=== PATIENT | male | born 1960 | race Caucasian/White ===

== ENCOUNTER 2024-10-03 06:43 | Outpatient (CLI) | payer MEDICARE, SELFPAY ==
--- NOTE | ~2024-10-03 | CT_ITS ---
Pre and postcontrast Head CT History: Epilepsy Technique: Axial imaging of the brain was performed prior to and following intravenous administratio n of 100 cc of Omnipaque 350 contrast material. Dose reduction technique was used on this scan by ela trotter automated exposure control and iterative reconstruction technique. The dose-length product (DL P) was 1210.67 mGy-cm. Findings: There is no evidence of intracranial hemorrhage, mass lesion, or acute infarct. Large area of encephalomalacia in the right frontal lobe is present, with apparent communication with the later al ventricle. The ventricles and subarachnoid spaces are mildly dilated otherwise. The calvarium roberto ears normal. Right maxillary sinus disease present. The remaining visualized paranasal sinuses and ma stoid air cells are clear. No abnormal postcontrast enhancement seen. Impression: Large area of encephalomalacia in the right frontal lobe with communication with the lateral ventricl e. No distinct evidence of postoperative change otherwise in the skull. 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 Correlate with any relevant clinical or procedural/surgical history. Reviewed, dictated and finalized at location M. Impression: Large area of encephalomalacia in the right frontal lobe with communication wit h the lateral ventricle. No distinct evidence of postoperative change otherwise in the skull. 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 Correlate with any re levant clinical or procedural/surgical history.
--- OUTSIDE RECORDS SUMMARY | 2024-10-03 06:46 | XMS_ITS | Data Portability ---
Author Organization [place] [facility] [employer], Main Office Address [address] [place] [address] Assessment Encounter Date Assessment Date Assessment LastModified by Organization Details LastModified Time 11/19/2022 11/19/2022 Blood work continue current therapy diagnosis discussed in follow-up in 4 months [email or web address] Not available 11/29/2022 18:22:13 04/02/2023 04/02/2023 Will continue current therapy there has been no seizure activity most recent blood work has been discussed smoking cessation discussed in detail and he does not want anything to do with the right now. shari of the ill effects of tobacco which were included but not limited to increased tumors of the aerodigestive tract increase incidence of heart attack stroke and cancer which could lead to sudden or chronic medical illness return to clinic 6 months [email or web address] Not available 04/12/2023 18:24:32 Plan of Treatment Reminders Order Date Submit Date Provider Last Modified By Organization Details Last Modified Time Details Appointments None recorded. Lab lipid panel, serum 023 023 [facility] (Lab), [address] [place], [address], 3 18:16:07 phenytoin , total, serum 023 023 [facility] (Lab), [address] [place], [address], 3 18:16:26 CBC w/ auto diff 023 023 [facility] (Lab), [address] [place], [address], 3 17:43:25 CMP, serum or plasma 023 023 [facility] (Lab), [address] [place], [address], 3 18:16:02 vitamin D, 25-hydrox y, total, serum 023 023 [facility] (Lab), [address] [place], [address], 3 11:06:13 Referral None recorded. Procedures None recorded. Surgeries None recorded. Imaging None recorded. Medication Orders None recorded. Patient TargetsNo targets recorded. Patient InstructionsNo instructions recorded. Reason for Referral None Reported. Results Created Date Observation Date Name Description Value Unit Range Abnormal Flag Note LastModifiedBy Organization Detail LastModifiedTime 01/09/20 22 01/08/2022 VITAM IN D 25-HY DROXY [id number] 84.1 NG/mL 30-100 Vitam in D Statu s: Defic ient: <20 ng/mL Insuf ficie nt: 20-29 ng/mL Suffi cient : 30-10 0 ng/mL Not Available [facility] (Lab) [address] [place], [address], 01/08/2022 14:39:20 01/09/20 22 01/08/2022 LIPID PANEL cholesterol 150 mg/dL 140-19 9 NIH MESFIN NSUS RECOM MENDA TION FOR ROBERT STERO L: ADULT CHILD LOW RISK: <200 <170 BORDE RLINE : <200- 239 ----- HIGH RISK: >240 >200 Not Available [facility] (Lab) [address] [place], [address], 01/08/2022 14:30:41 01/09/20 22 01/08/2022 LIPID PANEL triglyceride s 79 mg/dL 0-150 NIH MESFIN NSUS REPOR T RECOM MENDA TION FOR TRIGL YCERI ANEESH: ADULT CHILD LOW RISK: <150 ----- BODER LINE: 150-1 99 ----- HIGH RISK: >200 ----- Not Available [facility] (Lab) [address] [place], [address], 01/08/2022 14:30:41 01/09/20 22 01/08/2022 LIPID PANEL HDL cholesterol 79 mg/dL 40- Not Available [facility] (Lab) [address] [place], [address], 01/08/2022 14:30:41 01/09/20 22 01/08/2022 LIPID PANEL LDL cholesterol, calculated 55 mg/dL 0-130 NIH MESFIN NSUS REPOR T RECOM MENDA TIONS FOR LDL: ADULT CHILD LOW RISK <130 <110 (OPTI MAL LDL) <100 ----- TONIA RLINE : 130-1 59 ----- HIGH RISK: >160 >130 A TRIGL YCERI DE RESUL T >400 INVAL IDATE S THE CALCU LATIO N FOR LDL FRACT IONAT ION - THE LDL RESUL T WILL NOT BE REPOR PRAVEENA. Not Available [facility] (Lab) [address] [place], [address], 01/08/2022 14:30:41 01/09/20 22 01/08/2022 COMPR EHENS OANH METAB OLIC PANEL carbon dioxide 28 mmol/ L 22-30 Not Available [facility] (Lab) [address] [place], [address], 01/08/2022 14:30:37 01/09/20 22 01/08/2022 COMPR EHENS OANH METAB OLIC PANEL sodium 138 mmol/ L 137-14 5 Not Available [facility] (Lab) [address] [place], [address], 01/08/2022 14:30:37 01/09/20 22 01/08/2022 COMPR EHENS OANH METAB OLIC PANEL potassium 4.1 mmol/ L 3.5-5. 1 Not Available [facility] (Lab) [address] [place], [address], 01/08/2022 14:30:37 01/09/20 22 01/08/2022 COMPR EHENS OANH METAB OLIC PANEL chloride 103 mmol/ L 98-107 Not Available [facility] (Lab) [address] [place], [address], 01/08/2022 14:30:37 01/09/20 22 01/08/2022 COMPR EHENS OANH METAB OLIC PANEL anion gap 11.1 mmol/ L 14-22 low Not Available [facility] (Lab) [address] [place], [address], 01/08/2022 14:30:37 01/09/20 22 01/08/2022 COMPR EHENS AONH METAB OLIC PANEL glucose 111 mg/dL 70-99 high Not Available [facility] (Lab) [address] [place], [address], 01/08/2022 14:30:37 01/09/20 22 01/08/2022 COMPR EHENS OANH METAB OLIC PANEL BUN 13 mg/dL 8-19 Not Available [facility] (Lab) [address] [place], [address], 01/08/2022 14:30:37 01/09/20 22 01/08/2022 COMPR EHENS OANH METAB OLIC PANEL creatinine 1.05 mg/dL 0.66-1 .25 Not Available [facility] (Lab) [address] [place], [address], 01/08/2022 14:30:37 01/09/20 22 01/08/2022 COMPR EHENS OANH METAB OLIC PANEL GFR >60 Refer ence Range : [place] ge GFR Healt hy Adult : >60 mL/mi n/1.7 3 m2 Chron ic Kidne y Disea se: 15-60 mL/mi n/1.7 3 m2 Kidne y Failu re: <15/m L/min /1.73 m2 www.n iddk. nih.g ov The MDRD study equat ion has not been valid ated in child syl <18 years of age; pregn ant women ; the elder ly >85 years of age; or in some racia l or ethni c subgr oups, such as Hismichael nics. Outsi de the valid ated joe eters , estim ated GFR is less accur ate, requi ring clini frandy judgm ent on a case- by-ca se basis . Clini frandy inter preta tion for other races and ages must be made by the clini marcelino. The MDRD study equat ion has not been valid ated for the evalu ation of serum creat inine relat ed to nutri lisset l statu s or medic ation usage . For perso ns <18 years of age, a pedia tric GFR calcu lator is avail able on the [facility] websi te: https :[email or web address] ceballos.dominguez phillips.o rg/pr ofess ional s/kdo qi/gf r_cal culat or Not Available [facility] (Lab) [address] [place], [address], 01/08/2022 14:30:37 01/09/20 22 01/08/2022 COMPR EHENS OANH METAB OLIC PANEL alkaline phosphatase 42 U/L 38-126 Not Available [facility] (Lab) [address] [place], [address], 01/08/2022 14:30:37 01/09/20 22 01/08/2022 COMPR EHENS OANH METAB OLIC PANEL alanine aminotransfe rase 26 U/L 0-50 Not Available [facility] (Lab) [address] [place], [address], 01/08/2022 14:30:37 01/09/20 22 01/08/2022 COMPR EHENS OANH METAB OLIC PANEL aspartate aminotransfe rase 38 U/L 15-46 Not Available [facility] (Lab) [address] [place], [address], 01/08/2022 14:30:37 01/09/20 22 01/08/2022 COMPR EHENS OANH METAB OLIC PANEL bilirubin, total 0.70 mg/dL 0.20-1 .30 Not Available [facility] (Lab) [address] [place], [address], 01/08/2022 14:30:37 01/09/20 22 01/08/2022 COMPR EHENS OANH METAB OLIC PANEL calcium 9.6 mg/dL 8.4-10 .2 Not Available [facility] (Lab) [address] [place], [address], 01/08/2022 14:30:37 01/09/20 22 01/08/2022 COMPR EHENS OANH METAB OLIC PANEL total protein 6.6 g/dL 6.3-8. 2 Not Available [facility] (Lab) [address] [place], [address], 01/08/2022 14:30:37 01/09/20 22 01/08/2022 COMPR EHENS OANH METAB OLIC PANEL albumin 4.5 g/dL 3.0-4. 4 high Not Available [facility] (Lab) [address] [place], [address], 01/08/2022 14:30:37 01/09/20 22 01/08/2022 COMPR EHENS OANH METAB OLIC PANEL globulin 2.1 g/dL 2.6-4. 2 low Not Available [facility] (Lab) [address] [place], [address], 01/08/2022 14:30:37 01/09/20 22 01/08/2022 COMPR EHENS OANH METAB OLIC PANEL A/G ratio 2.1 ratio 1.0-2. 0 high Not Available [facility] (Lab) [address] [place], [address], 01/08/2022 14:30:37 01/09/20 22 01/08/2022 CBC W/O DIFFE RENTI AL mean red cell volume 97.1 fL 80.0-9 7.0 high Not Available [facility] (Lab) [address] [place], [address], 01/08/2022 12:51:01 01/09/20 22 01/08/2022 CBC W/O DIFFE RENTI AL white blood cells 4.2 x10'3 /uL 4.2-10 .8 Not Available [facility] (Lab) [address] [place], [address], 01/08/2022 12:51:01 01/09/20 22 01/08/2022 CBC W/O DIFFE RENTI AL red blood cells 4.14 x10'6 /uL 4.10-5 .80 Not Available [facility] (Lab) [address] [place], [address], 01/08/2022 12:51:01 01/09/20 22 01/08/2022 CBC W/O DIFFE RENTI AL hemoglobin 13.9 g/dL 13.2-1 7.0 Not Available [facility] (Lab) [address] [place], [address], 01/08/2022 12:51:01 01/09/20 22 01/08/2022 CBC W/O DIFFE RENTI AL hematocrit 40.2 % 39.3-5 0.0 Not Available [facility] (Lab) [address] [place], [address], 01/08/2022 12:51:01 01/09/20 22 01/08/2022 CBC W/O DIFFE RENTI AL mean red cell hemoglobin 33.6 pg 27.0-3 3.0 high Not Available [facility] (Lab) [address] [place], [address], 01/08/2022 12:51:01 01/09/20 22 01/08/2022 CBC W/O DIFFE RENTI AL mean RBC HGB concentratio n 34.6 g/dL 31.0-3 6.0 Not Available [facility] (Lab) [address] [place], [address], 01/08/2022 12:51:01 01/09/20 22 01/08/2022 CBC W/O DIFFE RENTI AL red cell distribution width 12.6 % 11.8-1 5.5 Not Available [facility] (Lab) [address] [place], [address], 01/08/2022 12:51:01 01/09/20 22 01/08/2022 CBC W/O DIFFE RENTI AL platelets 115 x10'3 /uL 150-40 0 low Not Available [facility] (Lab) [address] [place], [address], 01/08/2022 12:51:01 01/09/20 22 01/08/2022 CBC W/O DIFFE RENTI AL mean platelet volume 10.3 fL 9.0-12 .4 Not Available [facility] (Lab) [address] [place], [address], 01/08/2022 12:51:01 11/20/19 23 11/19/2022 CBC/C OMPLE TE BLD COUNT W/DIF F white blood cells 4.6 x10'3 /uL 4.2-10 .8 Not Available [facility] (Lab) [address] [place], [address], 11/19/2022 17:43:25 11/20/19 23 11/19/2022 CBC/C OMPLE TE BLD COUNT W/DIF F red blood cells 4.08 x10'6 /uL 4.10-5 .80 low Not Available [facility] (Lab) [address] [place], [address], 11/19/2022 17:43:25 11/20/19 23 11/19/2022 CBC/C OMPLE TE BLD COUNT W/DIF F hemoglobin 13.7 g/dL 13.2-1 7.0 Not Available [facility] (Lab) [address] [place], [address], 11/19/2022 17:43:25 11/20/19 23 11/19/2022 CBC/C OMPLE TE BLD COUNT W/DIF F hematocrit 40.9 % 39.3-5 0.0 Not Available [facility] (Lab) [address] [place], [address], 11/19/2022 17:43:25 11/20/19 23 11/19/2022 CBC/C OMPLE TE BLD COUNT W/DIF F mean red cell volume 100.2 fL 80.0-9 7.0 high Not Available [facility] (Lab) [address] [place], [address], 11/19/2022 17:43:25 11/20/19 23 11/19/2022 CBC/C OMPLE TE BLD COUNT W/DIF F mean red cell hemoglobin 33.6 pg 27.0-3 3.0 high Not Available [facility] (Lab) [address] [place], [address], 11/19/2022 17:43:25 11/20/19 23 11/19/2022 CBC/C OMPLE TE BLD COUNT W/DIF F mean RBC HGB concentratio n 33.5 g/dL 31.0-3 6.0 Not Available [facility] (Lab) [address] [place], [address], 11/19/2022 17:43:25 11/20/19 23 11/19/2022 CBC/C OMPLE TE BLD COUNT W/DIF F red cell distribution width 13.2 % 11.8-1 5.5 Not Available [facility] (Lab) [address] [place], [address], 11/19/2022 17:43:25 11/20/19 23 11/19/2022 CBC/C OMPLE TE BLD COUNT W/DIF F platelets 122 x10'3 /uL 150-40 0 low Not Available [facility] (Lab) [address] [place], [address], 11/19/2022 17:43:25 11/20/19 23 11/19/2022 CBC/C OMPLE TE BLD COUNT W/DIF F mean platelet volume 10.0 fL 9.0-12 .4 Not Available [facility] (Lab) [address] [place], [address], 11/19/2022 17:43:25 11/20/19 23 11/19/2022 CBC/C OMPLE TE BLD COUNT W/DIF F neutrophils 57.8 % 39.0-7 2.0 Not Available [facility] (Lab) [address] [place], [address], 11/19/2022 17:43:25 11/20/19 23 11/19/2022 CBC/C OMPLE TE BLD COUNT W/DIF F lymphocytes 31.0 % 16.0-4 7.0 Not Available [facility] (Lab) [address] [place], [address], 11/19/2022 17:43:25 11/20/19 23 11/19/2022 CBC/C OMPLE TE BLD COUNT W/DIF F monocytes 9.3 % 5.0-12 .0 Not Available [facility] (Lab) [address] [place], [address], 11/19/2022 17:43:25 11/20/19 23 11/19/2022 CBC/C OMPLE TE BLD COUNT W/DIF F eosinophils 1.3 % 1.0-7. 0 Not Available [facility] (Lab) [address] [place], [address], 11/19/2022 17:43:25 11/20/19 23 11/19/2022 CBC/C OMPLE TE BLD COUNT W/DIF F basophils 0.4 % 0.0-2. 0 Not Available [facility] (Lab) [address] [place], [address], 11/19/2022 17:43:25 11/20/19 23 11/19/2022 CBC/C OMPLE TE BLD COUNT W/DIF F immature granulocytes 0.2 % 0.00-0 .50 Not Available [facility] (Lab) [address] [place], [address], 11/19/2022 17:43:25 11/20/19 23 11/19/2022 CBC/C OMPLE TE BLD COUNT W/DIF F neutrophils, absolute count 2.68 x10'3 /uL 1.5-8. 0 Not Available [facility] (Lab) [address] [place], [address], 11/19/2022 17:43:25 11/20/19 23 11/19/2022 CBC/C OMPLE TE BLD COUNT W/DIF F lymphocytes, absolute count 1.44 x10'3 /uL 1.07-3 .43 Not Available [facility] (Lab) [address] [place], [address], 11/19/2022 17:43:25 11/20/19 23 11/19/2022 CBC/C OMPLE TE BLD COUNT W/DIF F monocytes, absolute count 0.43 x10'3 /uL 0.29-0 .99 Not Available [facility] (Lab) [address] [place], [address], 11/19/2022 17:43:25 11/20/19 23 11/19/2022 CBC/C OMPLE TE BLD COUNT W/DIF F eosinophils, absolute count 0.06 x10'3 /uL 0.02-0 .53 Not Available [facility] (Lab) [address] [place], [address], 11/19/2022 17:43:25 11/20/19 23 11/19/2022 CBC/C OMPLE TE BLD COUNT W/DIF F basophils, absolute count 0.02 x10'3 /uL 0.01-0 .08 Not Available [facility] (Lab) [address] [place], [address], 11/19/2022 17:43:25 11/20/19 23 11/19/2022 CBC/C OMPLE TE BLD COUNT W/DIF F immature granulocytes ,absolute 0.01 x10'3 /uL 0.00-0 .05 Not Available [facility] (Lab) [address] [place], [address], 11/19/2022 17:43:25 11/20/19 23 11/19/2022 CBC/C OMPLE TE BLD COUNT W/DIF F nucleated red blood cells 0.0 % -0 Not Available [facility] (Lab) [address] [place], [address], 11/19/2022 17:43:25 11/20/19 23 11/19/2022 CBC/C OMPLE TE BLD COUNT W/DIF F NRBC# 0.00 x10'3 /uL Not Available [facility] (Lab) [address] [place], [address], 11/19/2022 17:43:25 11/20/19 23 11/19/2022 COMPR EHENS OANH METAB OLIC PANEL sodium 138 mmol/ L 137-14 5 Not Available [facility] (Lab) [address] [place], [address], 11/19/2022 18:16:02 11/20/19 23 11/19/2022 COMPR EHENS OANH METAB OLIC PANEL potassium 3.9 mmol/ L 3.5-5. 1 Not Available [facility] (Lab) [address] [facility] [place], [address], 11/19/2022 18:16:02 11/20/19 23 11/19/2022 COMPR EHENS OANH METAB OLIC PANEL chloride 103 mmol/ L 98-107 Not Available [facility] (Lab) [address] [place], [address], 11/19/2022 18:16:02 11/20/19 23 11/19/2022 COMPR EHENS OANH METAB OLIC PANEL carbon dioxide 28 mmol/ L 22-30 Not Available [facility] (Lab) [address] [place], [address], 11/19/2022 18:16:02 11/20/19 23 11/19/2022 COMPR EHENS OANH METAB OLIC PANEL anion gap 10.9 mmol/ L 14-22 low Not Available [facility] (Lab) [address] [place], [address], 11/19/2022 18:16:02 11/20/19 23 11/19/2022 COMPR EHENS OANH METAB OLIC PANEL glucose 104 mg/dL 70-99 high Not Available [facility] (Lab) [address] [place], [address], 11/19/2022 18:16:02 11/20/19 23 11/19/2022 COMPR EHENS OANH METAB OLIC PANEL BUN 10 mg/dL 8-19 Not Available [facility] (Lab) [address] [place], [address], 11/19/2022 18:16:02 11/20/19 23 11/19/2022 COMPR EHENS OANH METAB OLIC PANEL creatinine 0.93 mg/dL 0.66-1 .25 Not Available [facility] (Lab) [address] [place], [address], 11/19/2022 18:16:02 05/11/19/2022 COMPR EHENS OANH METAB OLIC PANEL GFR >60 Refer ence Range : [place] ge GFR Healt hy Adult : >60 mL/mi n/1.7 3 m2 Chron ic Kidne y Disea se: 15-60 mL/mi n/1.7 3 m2 Kidne y Failu re: <15/m L/min /1.73 m2 www.n iddk. nih.g ov The MDRD study equat ion has not been valid ated in child syl <18 years of age; pregn ant women ; the elder ly >85 years of age; or in some racia l or ethni c subgr oups, such as Hispa nics. Outsi de the valid ated joe eters , estim ated GFR is less accur ate, requi ring clini frandy judgm ent on a case- by-ca se basis . Clini frandy inter preta tion for other races and ages must be made by the clini marcelino. The MDRD study equat ion has not been valid ated for the evalu ation of serum creat inine relat ed to nutri lisset l statu s or medic ation usage . For perso ns <18 years of age, a pedia tric GFR calcu lator is avail able on the [facility] websi te: https ://christine phillips.christiana whitley/erica whaley s/kdo qi/gf r_cal culat or Not Available [facility] (Lab) [address] [place], [address], 11/19/2022 18:16:02 11/20/1911/19/2022 COMPR EHENS OANH METAB OLIC PANEL alkaline phosphatase 43 U/L 38-126 Not Available [facility] (Lab) [address] [place], [address], 11/19/2022 18:16:02 11/20/1911/19/2022 COMPR EHENS OANH METAB OLIC PANEL alanine aminotransfe rase 29 U/L 0-50 Not Available [facility] (Lab) [address] [place], [address], 11/19/2022 18:16:02 11/20/19 23 11/19/2022 COMPR EHENS OANH METAB OLIC PANEL aspartate aminotransfe rase 43 U/L 15-46 Not Available [facility] (Lab) [address] [place], [address], 11/19/2022 18:16:02 11/20/19 23 11/19/2022 COMPR EHENS OANH METAB OLIC PANEL bilirubin, total 0.50 mg/dL 0.20-1 .30 Not Available [facility] (Lab) [address] [place], [address], 11/19/2022 18:16:02 11/20/19 23 11/19/2022 COMPR EHENS OANH METAB OLIC PANEL calcium 9.4 mg/dL 8.4-10 .2 Not Available [facility] (Lab) [address] [place], [address], 11/19/2022 18:16:02 11/20/19 23 11/19/2022 COMPR EHENS OANH METAB OLIC PANEL total protein 7.0 g/dL 6.3-8. 2 Not Available [facility] (Lab) [address] [place], [address], 11/19/2022 18:16:02 11/20/19 23 11/19/2022 COMPR EHENS OANH METAB OLIC PANEL albumin 4.5 g/dL 3.0-4. 4 high Not Available [facility] (Lab) [address] [place], [address], 11/19/2022 18:16:02 11/20/19 23 11/19/2022 COMPR EHENS OANH METAB OLIC PANEL globulin 2.5 g/dL 2.6-4. 2 low Not Available [facility] (Lab) [address] [place], [address], 11/19/2022 18:16:02 11/20/19 23 11/19/2022 COMPR EHENS OANH METAB OLIC PANEL A/G ratio 1.8 ratio 1.0-2. 0 Not Available [facility] (Lab) [address] [place] [address], [address], 11/19/2022 18:16:02 11/20/19 23 11/19/2022 LIPID PANEL cholesterol 179 mg/dL 140-19 9 NIH MESFIN NSUS RECOM MENDA TION FOR ROBERT STERO L: ADULT CHILD LOW RISK: <200 <170 BORDE RLINE : <200- 239 ----- HIGH RISK: >240 >200 Not Available [facility] (Lab) [address] [place] [address], [address], 11/19/2022 18:16:06 11/20/19 23 11/19/2022 LIPID PANEL triglyceride s 101 mg/dL 0-150 NIH MESFIN NSUS REPOR T RECOM MENDA TION FOR TRIGL YCERI ANEESH: ADULT CHILD LOW RISK: <150 ----- BODER LINE: 150-1 99 ----- HIGH RISK: >200 ----- Not Available [facility] (Lab) [address] [place] [address], [address], 11/19/2022 18:16:06 11/20/19 23 11/19/2022 LIPID PANEL HDL cholesterol 102 mg/dL 40- Not Available [facility] (Lab) [address] [place] [address], [address], 11/19/2022 18:16:06 11/20/19 23 11/19/2022 LIPID PANEL LDL cholesterol, calculated 57 mg/dL 0-130 NIH MESFIN NSUS REPOR T RECOM MENDA TIONS FOR LDL: ADULT CHILD LOW RISK <130 <110 (OPTI MAL LDL) <100 ----- BORDE RLINE : 130-1 59 ----- HIGH RISK: >160 >130 A TRIGL YCERI DE RESUL T >400 INVAL IDATE S THE CALCU LATIO N FOR LDL FRACT IONAT ION - THE LDL RESUL T WILL NOT BE REPOR PRAVEENA. Not Available [facility] (Lab) [address] [place], [address], 11/19/2022 18:16:06 11/20/19 23 11/19/2022 PHENY TOIN/ LOURDES TIN dilantin 13.2 mcg/m L 10.0-2 0.0 Not Available [facility] (Lab) [address] [place], [address], 11/19/2022 18:16:26 11/20/19 23 11/19/2022 VITAM IN D 25-HY DROXY [id number] 62.4 NG/mL 30-100 Vitam in D Statu s: Defic ient: <20 ng/mL Insuf ficie nt: 20-29 ng/mL Suffi cient : 30-10 0 ng/mL Not Available [facility] (Lab) [address] [place], [address], 11/19/2022 18:35:21 09/27/19 22 09/26/2021 bone densi ty [facility] [address] [place] [address] Patien t Name: CARLOS CHANDLER RD Access ion #: [id number] Sex: M : 1960 9 Locati on: RAD Attend ing Physic kathryn: ISABELLA ARANA Orderi ng Physic kathryn: ISABELLA ARANA Exam Date: 022 9:35 AM Exam Name: XR DEXA-H IPS PELVIS SPINE Admitt ing Diagno sis(es ): RADIOL OGY REPORT - FINAL EXAM: XR DEXA-H IPS PELVIS SPINE HISTOR Y: OSTEOP ENIA COMPAR KHOI: 2018, 2015 TECHNI QUE: TECHNI QUE: Dual energy x-ray of absorp tion examin ation of the bilate ral hips and lumbar spine in AP projec tion was perfor med. FINDIN GS: Lumbar Spine (L1-L4 ): The mean bone minera l densit y is 1.08 g/cm2 hydrox yapati te, correl ating with a T-scor e of -1.2 repres enting a 3% decrea se from the 2016 baseli ne. Bilate ral hips: The mean bone minera l densit y is 0.820 g/cm2 calciu m Page 1 of 2 [facility] Patien t Name: CARLOS CHANDLER RD Access ion #: [id number] Sex: M : 1960 9 Exam Date: 9:35 AM Exam Name: XR DEXA-H IPS PELVIS SPINE Admitt ing Diagno sis(es ): hydrox yapati te, correl ating with a T-scor e of -1.9 repres enting a 1.8% decrea se from the 2015 baseli ne. IMPRES ALINE: 1. The patien t's lumbar spine T-scor e is consis tent with osteop enia. 2. The patien t's bilate ral hip T-scor e is consis tent with osteop enia. Accord ing to the [employer] zation , T-scor e values greate r than -1.0 are normal , values betwee n -1.0 and -2.5 are catego rized as osteop enia, T-scor e of -2.5 or more are catego rized as osteop orosis . Create d and electr onical ly signed by: Irineo crawford MD Signed Date: 9:55 AM (CT) Dictat ed by: Irineo crawford MD DD: 9:55 AM (CT) DT: 9:55 AM (CT) Page 2 of 2 [id number] [facility] (Imaging) [address] [place], [address], 09/03/2022 01:31:46 09/27/19 23 05/16/2022 LDCT, chest , for lung delbertce rafael lazar No observ ation record ed. cyahl Not Available 2022 10:57:18 06/27/20 24 06/27/2024 XR, lumba r spine [facility] [address] [facility] [place] [address] [phone] Patiandreea t Name: CARLOS CHANDLER RD Access ion #: [id number] Sex: M : 1960 9 Dictat ed By: Sergey Castro Attend ing Physic kathryn: ISABELLA ARANA Orderi Physic kathryn: ISABELLA ARANA Exam Date: 2023 10:32 AM Exam Name: XR L SPINE 4V+ Admitt ing Diagno sis(es ): INDICA TION: low back pain COMPAR KHOI: None TECHNI QUE: 4 views of the lumbar spine were obtain ed. FINDIN GS: The lumbar verteb ral alignm ent is normal . The interv ertebr al disc spaces are well-m aintai jacki. No signif icant facet arthro jeff is noted. No acute fractu re, verteb ral compre ssion deform ity or aggres sive osseou s lesion s. The parave rtebra l soft tissue s are grossl y unrema rkable . IMPRES ALINE: No acute fractu re or sublux ation. Electr onical ly Signed by: Sergey Castro at 2023 10:57: 21 AM Page 1 INTERFACE [facility] (Imaging) [address] [place], [address], 06/27/2024 11:59:36 06/27/20 24 06/27/2024 LDCT, chest , for lung cance r scree nagi [facility] [place] [address] [facility] [place] [address] [phone] Patiandreea t Name: CARLOS CHANDLER RD Access ion #: [id number] Sex: M : 1960 9 Dictat ed By: Dewayne Carrizales ms Attend ing Physic kathryn: ISABELLA ARANA Physic kathryn: ISABELLA ARANA Exam Date: 2023 10:29 AM Exam Name: CT LOW DOSE CNCR SCREEN ING Admitt ing Diagno sis(es ): CT Chest withou t intrav enous contra st INDICA TION: Screen ing for lung cancer TECHNI QUE: Multid etecto r spiral CT of the chest was perfor med from the lung apices to the upper abdome n utiliz ing axial images . Berumen l and sagitt al multip lanar reform ats were perfor med. Radiat ion Dose : 1. Chest: CTDI volume is 1.0 mGy. Dose-l ength produc t is 38.7 mGy*cm The dose indica tors for CT are the volume Comput ed Tomogr aphy (CT) Dose Index (CTDIv ol) and the Dose Length Produc t (DLP), and are measur ed in units of mGy and mGy-cm , respec tively . These indica tors are not patien t dose, but values genera praveena from the CT scanne r acquis ition factor s. The report includ es radiat ion exposu re data for exposu res receiv ed during this examin ation. Compar khoi: CT LOW DOSE CNCR SCREEN ING on DOS: Findin gs: Lower neck: Unrema rkable thyroi d Lungs: No suspic ious pulmon darlyn nodule s. Emphys martinez. Pleura : No pleura l effusi ons. No pneumo thorax . Centra l airway s: Patent . Heart/ Vascul ar Struct ures: The heart is normal in size. No perica rdial effusi on. There are no signif icant berumen ry artery calcif icatio ns. Normal Page 1 [facility] [place] [address] [place] [address] [phone] Patien t Name: CARLOS CHANDLER RD ion #: [id number] Sex: M : 1960 9 Dictat ed By: Dewayne Carrizales ms Attend ing Physic kathryn: PAMELA INIGUEZ Physic kathryn: ISABELLA ARANA Exam Date: 2023 10:29 AM Exam Name: CT LOW DOSE CNCR SCREEN ING Admitt ing Diagno sis(es ): calibe r thorac ic aorta. The main pulmon darlyn artery is normal in calibe r. Lymph Nodes: No adenop athy Muscul oskele keyonna: No fractu re or suspic ious bone lesion s. Body wall: Unrema rkable Upper abdome n: Unrema rkable . IMPRES ALINE: 1. No suspic ious pulmon darlyn nodule s. Lung-R ADS: Catego ry 1: Recomm endati on: Contin ue annual screen ing with LDCT https: //[email or web address]/L [email or web address] Electr onical ly Signed by: Dewayne Carrizales ms at 2023 11:01: 43 AM Page 2 INTERFACE [facility] ([facility]) [address] [place] [address], [address], 06/27/2024 12:04:06 Result Notes None recorded. 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 Procedures Surgical History Date Name Laterality Status Provider Name and Address Organization Details Recorded Time 02/26/20 17 colonoscopy completed Not Available [facility] 09/04/19 00:59:49 procedure on ear completed Not Available [facility] 09/03/2022 00:59:49 Imaging Results Imaging Date Name Status LastModified by [facility] Details LastModified Time 09/26/2021 bone density completed [id number] [facility] (Imaging) [address] [place], [address], 09/03/2022 01:31:46 05/16/2022 LDCT, chest, for lung cancer screening completed cyahl Information not available 09/26/2022 10:57:18 06/27/2024 XR, lumbar spine active INTERFACE [facility] (Imaging) [address] [place], [address], 06/27/2024 11:59:36 06/27/2024 LDCT, chest, for lung cancer screening active INTERFACE [facility] (Imaging) [address] [place], [address], 06/27/2024 12:04:06 Procedure Notes None recorded. Medical Equipment None Reported. Allergies No known drug allergies Medications Name Sig Start Date Stop Date Status Note LastModified by Organization Details LastModified Time hydrocodo ne 5 mg-acetam inophen 325 mg tablet 09/06 completed Not Available Not Available Not Available alendrona te 70 mg tablet TAKE 1 TABLET BY MOUTH WEEKLY WITH 8 OUNCE OF PLAIN WATER 1/2 HOUR BEFORE FIRST FOOD DRINK OR MEDS. STAY UPRIGHT FOR 1/2 HOUR 09/[address] Arana see pt case 09/23/19 22 Not Available Not Available Not Available phenytoin sodium extended 100 mg capsule TAKE 1 CAPSULE BY MOUTH TWICE DAILY active Not Available Not Available No t Available acetamino phen 300 mg-codein e 30 mg tablet 11/11 completed Not Available Not Available Not Available peg-elect rolyte solution 420 gram oral solution 11/19 completed Not Available Not Available Not Available ofloxacin 0.3 % ear drops 09/13 completed Not Available Not Available Not Available Ciprodex 0.3 %-0.1 % ear drops,malissa pension 09/06 completed Not Available Not Available Not Available calcium 2020 active Not Available Not Available Not Avai lable multivita min 2020 active Not Available Not Available Not Avai lable GaviLyte- G 236 gram-22.7 4 gram-6.74 gram-5.86 gram oral solution 05/22 completed Not Available Not Available Not Available Dilantin 30 mg capsule TAKE 1 CAPSULE BY MOUTH ONCE DAILY active Not Available Not Available No t Available Vitals Date Recorded Body mass index (BMI) Body height Heart rate Body temperature Body weight Systolic blood pressure Diastolic blood pressure Provider Name and Address Organization Details Last Updated DateTime 2 15.8 kg/m2 165.1 cm 68 /min 97.2 [degF] 76927.5 6 g 110 mm[Hg] 70 mm[Hg] Not Available [facility] 3 01:03:31 Date Recorded Body mass index (BMI) Body height Heart rate Body temperature Body weight Systolic blood pressure Diastolic blood pressure Provider Name and Address Organization Details Last Updated DateTime 2 15.5 kg/m2 165.1 cm 58 /min 95.6 [degF] 07179.0 9 g 108 mm[Hg] 60 mm[Hg] Not Available [facility] 3 01:03:31 Date Recorded Body mass index (BMI) Body height Pain severity - 0-10 verbal numeric rating [Score] - Reported Heart rate Body temperature Body weight Systolic blood pressure Diastolic blood pressure Provider Name and Address Organization Details Last Updated DateTime 2 15.1 kg/m2 165.1 cm 0 68 /min 97.6 [degF] 89740.9 1 g 120 mm[Hg] 62 mm[Hg] Not Available [facility] 3 01:03:31 Date Recorded Body height Body mass index (BMI) Body weight Body temperature Heart rate Systolic blood pressure Diastolic blood pressure Provider Name and Address Organization Details Last Updated DateTime 3 165.1 cm 15.6 kg/m2 27531.6 8 g 98.2 [degF] 64 /min 120 mm[Hg] 70 mm[Hg] KRISTA Flores [place] [facility] [employer] [facility] 3 15:42:48 Date Recorded Body height Body mass index (BMI) Body weight Body temperature Heart rate Systolic blood pressure Diastolic blood pressure Provider Name and Address Organization Details Last Updated DateTime 3 165.1 cm 15.1 kg/m2 26729.9 1 g 98.2 [degF] 70 /min 122 mm[Hg] 70 mm[Hg] KRISTA Flores [place] [facility] 3 14:50:23 Social History Question Answer Notes LastModified by Organization Details LastModified Time Tobacco Smoking Status Current Every Day Smoker Not Available [facility] 09/03/2022 00:51:25 Do You Have An Advance Directive? No MIGRATION.030 [id number] Information not available 09/03/2022 What Is Your Level Of Alcohol Consumption? None MIGRATION.030 269889 Information not available 09/03/2022 What Is Your Level Of Caffeine Consumption? Moderate MIGRATION.030 [id number] Information not available 09/03/2022 How Much Tobacco Do You Chew? None MIGRATION.030 874767 Information not available 09/03/2022 In The 14 Days Before Symptom Onset, Have You Had Close Contact With A Laboratory-confi rmed COVID-19 While That Case Was Ill? No MIGRATION.030 [id number] Information not available 09/03/2022 In The 14 Days Before Symptom Onset, Have You Had Close Contact With A Person Who Is Under Investigation For COVID-19 While That Person Was Ill? No MIGRATION.030 [id number] Information not available 09/03/2022 What Type Of Diet Are You Following? REGULAR MIGRATION.030 [id number] Information not available 09/03/2022 Which Illicit Or Recreational Drugs Have You Used? None MIGRATION.030 395032 Information not available 09/03/2022 Do You Or Have You Ever Used E-cigarettes Or Vape? Never Used Electronic Cigarettes MIGRATION.030 [id number] Information not available 09/03/2022 What Is The Highest Grade Or Level Of School You Have Completed Or The Highest Degree You Have Received? [id number] MIGRATION.030 810148 Information not available 09/03/2022 What Is Your Occupation? Disabled MIGRATION.030 005314 Information not available 09/03/2022 Have There Been Any Changes To Your Family Or Social Situation? No MIGRATION.030 381931 Information not available 09/03/2022 What Is The Fluoride Status Of Your Home? Unknown MIGRATION.030 711250 Information not available 09/03/2022 Are There Any Guns Present In Your Home? No MIGRATION.0301 343656 Information not available 09/03/2022 Do You Use Insect Repellent Routinely? No MIGRATION.0301 503736 Information not available 09/03/2022 Where Do You Live? SingleLevelHouse MIGRATION.0301 147849 Information not available 09/03/2022 Do You Have A Medical Power Of Thin Film Technician? No MIGRATION.0301 [id number] Information not available 09/03/2022 What Was The Date Of Your Most Recent Tobacco Screening? 04/02/2023 [email or web address] Information not available 04/02/2023 What Is Your Current Pack Years? 20-29packyears MIGRATION.0301 391339 Information not available 09/03/2022 Do You Have Any Pets? Yes MIGRATION.0301 708463 Information not available 09/03/2022 What Is Your Relationship Status? MIGRATION.030 774309 Information not available 09/03/2022 Do You Use Your Seat Belt Or Car Seat Routinely? Yes MIGRATION.0301 401589 Information not available 09/03/2022 Do You Have Smoke And Carbon Monoxide Detectors In Your Home? Yes MIGRATION.0301 512019 Information not available 09/03/2022 At What Age Did You Start Smoking Tobacco? 13 MIGRATION.030 580779 Information not available 09/03/2022 Are You Passively Exposed To Smoke? No MIGRATION.030 545491 Information not available 09/03/2022 Do You Or Have You Ever Used Smokeless Tobacco? Never Used Smokeless Tobacco MIGRATION.0301 804109 Information not available 09/03/2022 Are There Any Smokers In Your House? Yes Pt Smokes MIGRATION.0301 809549 Information not available 09/03/2022 How Much Tobacco Do You Smoke? 0.5 PPD MIGRATION.0301 649943 Information not available 09/03/2022 What Types Of Sporting Activities Do You Participate In? None MIGRATION.030 072269 Information not available 09/03/2022 Do You Feel Stressed (tense, Restless, Nervous, Or Anxious, Or Unable To Sleep At Night)? [id number] MIGRATION.030 046667 Information not available 09/03/2022 Do You Use Any Illicit Or Recreational Drugs? No MIGRATION.0301 561908 Information not available 09/03/2022 Do You Use Sunscreen Routinely? No MIGRATION.0301 160052 Information not available 09/03/2022 Have You Recently Traveled Abroad? No MIGRATION.0301 897911 Information not available 09/03/2022 Do You Have Any Dietary Restrictions? No MIGRATION.0301 463679 Information not available 09/03/2022 Do You Or Have You Ever Used Any Other Forms Of Tobacco Or Nicotine? No MIGRATION.0301 764468 Information not available 09/03/2022 Sex: Male Functional Status Question Answer Note LastModified by Organizat ion Details LastModified Time What is your exercise level? None MIGRATION.[id number] Information not available 09/03/2022 Mental Status None recorded. Family History Relationship Description Onset Age of this Age Resolved Age Notes LastModified by Organization Details LastModified Time Mother Heart disease MIGRATION.645 [id number] Not available 09/03/2022 00:59:52 Father Prosthetic arthroplasty of the hip MIGRATION.079 [id number] Not available 09/03/2022 00:59:52 Medical History Condition Response NERVE DISEASE N BLINDNESS N RHEUMATIC FEVER N KIDNEY STONES N BLADDER PROBLEMS N MRSA N OTHER # 1 Y POLIO N LUNG DISEASE/DISORDER N HISTORY OF DRUG ABUSE N COPD N RADIATION / CHEMOTHERAPY N Other # 2 N BLOOD DISEASES N EAR OR HEARING PROBLEMS N MUMPS N SHINGLES N DEPRESSION (INCLUDING POST ) N BOWEL PROBLEMS N STROKE/TIA N ULCERS N BENIGN PROSTATIC HYPERPLASIA N MEASLES N HYPOTENSION N MYOCARDIAL INFARCTION N OBESITY N GERD/NAUSEA N ANEURYSM N URINARY/BLADDER/KIDNEY PROBLEMS N CORONARY ARTERY DISEASE (CAD) N ADDICTION CONCERNS N Impotence N ENDOMETRIOSIS N USE OF BLOOD THINNERS N SKIN PROBLEMS N GASTROINTESTINAL DISORDER N PERIPHERAL VASCULAR DISEASE N MUSCLE,JOINT OR BONE PROBLEMS N GASTROINTESTINAL BLEEDING N BLOOD CLOTS N ASTHMA N CATARACTS N ERECTILE DYSFUNCTION N VARICOSITIES N GI PROBLEMS N Low Testosterone N INFERTILITY N AIDS/HIV N CHEMOTHERAPY / RADIATION N LIVER DISEASE N MALE HYPOGONADISM N HYPERTENSION N Deficiency Y TOURETTE'S N ANXIETY DISORDER N BLOOD TRANSFUSION N ANEMIA/BLOOD DISORDER N CHRONIC EAR INFECTIONS N BRONCHITIS N TUBERCULOSIS N GLAUCOMA N FOOT PROBLEM N DIVERTICULITIS N SLEEP APNEA N CHICKENPOX N INFECTIOUS DISEASE N PROSTATE N HEART ARRHYTHMIA N INSOMNIA N HIGH CHOLESTEROL / HYPERLIPIDEMIA N EYE PROBLEMS N HYPERTHYROIDISM N EDEMA N CHRONIC PAIN SYNDROME N HYPOTHYROIDISM N CAROTID BLOCKAGE N CONSTIPATION N BACK / NECK PROBLEMS N HAVE YOU BEEN HOSPITALIZED OR SEEN IN [facility] IN THE PAST YEAR ? N ATHEROSCLEROSIS N BREAST PROBLEMS N DIALYSIS N ECZEMA N OSTEOPOROSIS N ARTHRITIS N NO SIGNIFICANT PAST MEDICAL HISTORY N APPENDICITIS N DIABETES, TYPE N BAD TEETH N ENT N HEARTBURN / REFLUX N AUTISM SPECTRUM DISORDER (ASD) N HEPATITIS / LIVER DISEASE N GOUT N SLEEP DISORDER N ALZHEIMER'S DISEASE N Brain Problems N DEMENTIA N HERPES N SEIZURES/EPILEPSY Y HEADACHES/MIGRAINES N VASCULAR DISEASE N PACEMAKER N Blood Disorder Y DIZZINESS N HEART DISEASE/HEART PROBLEMS N KIDNEY DISEASE N MULTIPLE SCLEROSIS N CANCER: SPECIFY N CARDIAC ARRHYTHMIA N ATRIAL FIBRILLATION N Gall Stones N PULMONARY EMBOLISM N AUTOIMMUNE DISEASE N Immunizations Vaccine Type Date Status Note Provider Nam e and Address Organization Details Recorded Time COVID-19, mRNA, LNP-S, PF, 100 mcg/0.5mL dose or 50 mcg/0.25mL dose 12/13/2020 completed Not Available [facility] 3 01:30:09 COVID-19, mRNA, LNP-S, PF, 100 mcg/0.5mL dose or 50 mcg/0.25mL dose 11/15/2020 completed Not Available [facility] 3 01:30:09 Past Encounters Encounter ID Performer Location Encounter Start Date Encounter Closed Date Diagnosis/Indication Diagnosis SNOMED-CT Code Diagnosis ICD10 Code Diagnosis Note [id number] [facility] [address] [place], [place] [address] [address] 09/05/2020 00:00:00 09/14/2020 20:01:28 [id number] [facility] [address] [address] 03/13/2021 00:00:00 03/13/2021 10:47:44 [id number] [facility] [address] [address] 09/04/2021 00:00:00 09/22/2021 12:14:26 [id number] [facility] [address] [address] 01/08/2022 00:00:00 01/08/2022 17:57:05 [id number] [facility] Internal Med [facility] [address] [place] [address] 05/07/2022 00:00:00 06/15/2022 21:43:10 [id number] Wilian Arana MD [facility] Internal Med [facility] [address] [facility] [address] [place] [address] 11/19/2022 14:48:36 11/19/2022 17:20:26 Seizure disorder 130103094 G40.909 Venous stasis 05660122 I 87.8 Vitamin D deficiency 347 40490 E55.9 Thrombocyt openic disorder 080037858 D69.6 Long-term drug therapy 009328407 Z79.899 Screening for cardiovascular system disease 708222559 Z13.6 [id number] Wilian Arana MD [facility] Internal Med [facility] [address] [facility] [address] [place] [address] 04/02/2023 14:26:25 04/02/2023 15:59:22 Seizure disorder 454163314 G40.909 Thrombocyt openic disorder 600400346 D69.6 Venous stasis 66934295 I 87.8 Health Concerns Section Related Observation LastModified by Organization Detai ls LastModified Time None Recorded Concern Status LastModified by Organization Details LastModified Time None Recorded Advance Directives Directive N: Payers Encounter Date Sequence Insurance Name Policy Number Policy Smith Covered Member ID [id number] Member ID Guarantor Name 11/19/2022 1 [facility] (MEDICARE REPLACEMENT/A DVANTAGE - HMO) [id number] Carlos Segovia [id number] Carlos Segovia 04/02/2023 1 [facility] (MEDICARE REPLACEMENT/A DVANTAGE - HMO) [id number] Carlos Segovia [id number] Carlos Segovia Notes Date Note Type Note Provider Name and Address Organization Details Recorded Time 11/19/2022 text/html Low platelets chronic no bleeding. Venous stasis about the same no signs of infection. Seizure disorder no seizures still smokes Wilian Arana MD [address] [facility], [address], [place], [address], [facility] [employer] [facility] 11/29/2022 18:22:31 04/02/2023 text/html Low platelets chronic no bleeding. Venous stasis about the same no signs of infection. Seizure disorder no seizures still smokes Wilian Arana MD [address] [place] [address], [place], [address], [place] [facility] [employer] [facility] 04/12/2023 18:24:48
--- OUTSIDE RECORDS SUMMARY | 2024-10-03 06:46 | XMS_ITS | Data Portability ---
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 Follow-up 4 months. Stay up-to-date on immunizations and screenings. [email or web address] Not available 10/07/2023 20:28:40 12/30/2023 12/30/2023 handouts given blood work ordered ill effects of tobacco discussed in detail including but not limited to increased tumors of aerodigestive tract increased incidence of heart attack stroke and cancer that could lead to sudden or chronic medical illness follow-up 4 months he has had intermittent problems with drainage from ears he has had several surgeries has seen several ENTs would like to be referred [email or web address] Not available 12/30/2023 22:38:40 06/21/2024 06/21/2024 Continues to smoke counseled. 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 Not available 06/21/2024 13:24:29 Plan of Treatment Reminders Order Date Submit Date Provider Last Modified By Organization Details Last Modified Time Details Appointments ANY 15 2024 11:00A Hermes Arana MD Not available Not available Not available Lab phenytoin , total, serum 2023 024 [facility], [address], [address], [place], [address], 06/22/2024 13:10:04 lipid panel, serum 2023 024 [facility], [address], [address], [place], [address], 06/22/2024 13:09:59 CMP, serum or plasma 2023 024 [facility], [address], [address], [place], [address], 06/22/2024 13:10:00 CBC w/ auto diff 2023 024 [facility], [address], [address], [place], [address], 06/22/2024 13:10:02 PSA, total, serum or plasma 2023 024 [facility], [address], [address], [place], [address], 01/02/2024 10:11:47 CBC w/ auto diff 2023 024 [facility], [address], [address], [place], [address], 01/02/2024 10:11:46 CMP, serum or plasma 2023 024 [facility], [address], [address], [place], [address], 01/02/2024 10:11:46 lipid panel, serum 2023 024 [facility], [address], [address], [place], [address], 01/02/2024 10:11:45 PSA, total, serum or plasma 2023 024 [facility]ATTARADHA, [address], [address], [place], [address], 09/03/2023 06:18:34 vitamin D, 25-hydrox y, total, serum 2023 024 [facility], [address], [address], [place], [address], 09/03/2023 06:18:35 CBC w/ auto diff 2023 024 [facility] BRENNA, [address], [address], [place], [address], 09/03/2023 06:18:33 lipid panel, serum 2023 024 [facility], [address], [address], [place], [address], 09/03/2023 06:18:32 CMP, serum or plasma 2023 024 [facility] BRENNA, [address], [address], [place], [address], 09/03/2023 06:18:33 Referral ENT surgery referral 2023 024 [facility] Pacheco, [address], [place], [address], 05/12/2024 17:14:31 Procedures None recorded. Surgeries None recorded. Imaging XR, lumbar spine 2023 024 [facility] ([facility]), [address] [place], [address], 06/27/2024 12:01:44 Medication Orders None recorded. Patient TargetsNo targets recorded. Patient Instructions Encounter Date Encounter Id Patient Instructions Last Modified By Organization Details Last Modified Time 12/30/2023 [id number] Quitting Tobacco : Care Instructions [email or web address] Not available 12/30/2023 16:11:55 eating healthy foods: care instructions [email or web address] Not available 12/30/2023 16:11:55 06/21/2024 [id number] eating healthy foods: care instructions [email or web address] Not available 06/21/2024 12:38:46 Reason for Referral ENT Surgery Referral for Ayad rrhea of bilateral ears Referring Physician: Rosendo Arana, Internal Medicine, Encounter Date: 12/30/2023 Results Created Date Observation Date Name Description Value Unit Range Abnormal Flag Note LastModifiedBy Organization Detail LastModifiedTime 09/02/19 24 09/03/2023 LIPID PANEL cholesterol, total 171 mg/dL 100-19 9 Not Available [facility] ([facility]) [address] [place], [address], 09/03/2023 06:18:32 09/02/1909/03/2023 LIPID PANEL triglyceride s 44 mg/dL 0-149 Not Available [facility] ([facility]) [address] [place], [address], 09/03/2023 06:18:32 09/02/19 24 09/03/2023 LIPID PANEL HDL cholesterol 101 mg/dL >39 Not Available [facility] ([facility]) [address] [place], [address], 09/03/2023 06:18:32 09/02/19 24 09/03/2023 LIPID PANEL VLDL cholesterol frandy 10 mg/dL 5-40 Not Available [facility] ([facility]) [address] [place], [address], 09/03/2023 06:18:32 09/02/19 24 09/03/2023 LIPID PANEL LDL chol calc ([facility]) 60 mg/dL 0-99 Not Available [facility] ([facility]) [address] [place], [address], 09/03/2023 06:18:32 09/02/19 24 09/03/2023 COMP. METAB OLIC PANEL (14) glucose 119 mg/dL 70-99 above high normal Not Available [facility] ([facility]) [address] [place], [address], 09/03/2023 06:18:33 09/02/19 24 09/03/2023 COMP. METAB OLIC PANEL (14) BUN 13 mg/dL 8-27 Not Available [facility] ([facility]) [address] [place], [address], 09/03/2023 06:18:33 09/02/19 24 09/03/2023 COMP. METAB OLIC PANEL (14) creatinine 1.03 mg/dL 0.76-1 .27 Not Available [facility] ([facility]) [address] [place], [address], 09/03/2023 06:18:33 09/02/19 24 09/03/2023 COMP. METAB OLIC PANEL (14) eGFR 81 mL/mi n/1.7 3 >59 Not Available [facility] ([facility]) [address] [place], [address], 09/03/2023 06:18:33 09/02/19 24 09/03/2023 COMP. METAB OLIC PANEL (14) BUN/creatini ne ratio 13 10-24 Not Available [facility] ([facility]) [address] [place], [address], 09/03/2023 06:18:33 09/02/19 24 09/03/2023 COMP. METAB OLIC PANEL (14) sodium 145 mmol/ L 134-14 4 above high normal Not Available [facility] ([facility]) [address] [place], [address], 09/03/2023 06:18:33 09/02/19 24 09/03/2023 COMP. METAB OLIC PANEL (14) potassium 4.6 mmol/ L 3.5-5. 2 Not Available [facility] ([facility]) [address] [place], [address], 09/03/2023 06:18:33 09/02/19 24 09/03/2023 COMP. METAB OLIC PANEL (14) chloride 106 mmol/ L 96-106 Not Available [facility] ([facility]) [address] [place], [address], 09/03/2023 06:18:33 09/02/19 24 09/03/2023 COMP. METAB OLIC PANEL (14) carbon dioxide, total 25 mmol/ L Not Available [facility] ([facility]) [address] [place], [address], 09/03/2023 06:18:33 09/02/19 24 09/03/2023 COMP. METAB OLIC PANEL (14) calcium 9.6 mg/dL 8.6-10 .2 Not Available [facility] ([facility]) [address] [place], [address], 09/03/2023 06:18:33 09/02/19 24 09/03/2023 COMP. METAB OLIC PANEL (14) protein, total 6.6 g/dL 6.0-8. 5 Not Available [facility] ([facility]) [address] [place], [address], 09/03/2023 06:18:33 09/02/19 24 09/03/2023 COMP. METAB OLIC PANEL (14) albumin 4.6 g/dL 3.9-4. 9 Not Available [facility] ([facility]) [address] [place], [address], 09/03/2023 06:18:33 09/02/19 24 09/03/2023 COMP. METAB OLIC PANEL (14) globulin, total 2.0 g/dL 1.5-4. 5 Not Available [facility] ([facility]) [address] [place], [address], 09/03/2023 06:18:33 09/02/19 24 09/03/2023 COMP. METAB OLIC PANEL (14) A/G ratio 2.3 1.2-2. 2 above high normal Not Available [facility] ([facility]) [address] [place], [address], 09/03/2023 06:18:33 09/02/19 24 09/03/2023 COMP. METAB OLIC PANEL (14) bilirubin, total 0.3 mg/dL 0.0-1. 2 Not Available [facility] ([facility]) [address] [place], [address], 09/03/2023 06:18:33 09/02/19 24 09/03/2023 COMP. METAB OLIC PANEL (14) alkaline phosphatase 43 IU/L 44-121 below low normal Not Available [facility] ([facility]) [address] [place], [address], 09/03/2023 06:18:33 09/02/19 24 09/03/2023 COMP. METAB OLIC PANEL (14) AST (SGOT) 47 IU/L 0-40 above high normal Not Available [facility] ([facility]) [address] [place], [address], 09/03/2023 06:18:33 09/02/19 24 09/03/2023 COMP. METAB OLIC PANEL (14) ALT (SGPT) 40 IU/L 0-44 Not Available [facility] ([facility]) [address] [place], [address], 09/03/2023 06:18:33 09/02/19 24 09/02/2023 CBC WITH DIFFE RENTI AL/PL ATELE T WBC 5.9 x10e3 /uL 3.4-10 .8 Not Available [facility] ([facility]) [address] [facility], [place], [address], 09/03/2023 06:18:33 09/02/19 24 09/02/2023 CBC WITH DIFFE RENTI AL/PL ATELE T RBC 4.16 x10e6 /uL 4.14-5 .80 Not Available [facility] ([facility]) [address] [facility], [place], [address], 09/03/2023 06:18:33 09/02/19 24 09/02/2023 CBC WITH DIFFE RENTI AL/PL ATELE T hemoglobin 14.1 g/dL 13.0-1 7.7 Not Available [facility] ([facility]) [address] [facility], [place], [address], 09/03/2023 06:18:33 09/02/19 24 09/02/2023 CBC WITH DIFFE RENTI AL/PL ATELE T hematocrit 40.0 % 37.5-5 1.0 Not Available [facility] ([facility]) [address] [place], [address], 09/03/2023 06:18:33 09/02/19 24 09/02/2023 CBC WITH DIFFE RENTI AL/PL ATELE T MCV 96 fL 79-97 Not Available [facility] ([facility]) [address] [place], [address], 09/03/2023 06:18:33 09/02/19 24 09/02/2023 CBC WITH DIFFE RENTI AL/PL ATELE T MCH 33.9 pg 26.6-3 3.0 above high normal Not Available [facility] ([facility]) [address] [place], [address], 09/03/2023 06:18:33 09/02/19 24 09/02/2023 CBC WITH DIFFE RENTI AL/PL ATELE T MCHC 35.3 g/dL 31.5-3 5.7 Not Available [facility] ([facility]) [address] [facility], [place], [address], 09/03/2023 06:18:33 09/02/19 24 09/02/2023 CBC WITH DIFFE RENTI AL/PL ATELE T RDW 12.7 % 11.6-1 5.4 Not Available [facility] ([facility]) [address] [facility], [place], [address], 09/03/2023 06:18:33 09/02/19 24 09/02/2023 CBC WITH DIFFE RENTI AL/PL ATELE T platelets 132 x10e3 /uL 150-45 0 below low normal Not Available [facility] ([facility]) [address] [facility], [place], [address], 09/03/2023 06:18:33 09/02/19 24 09/02/2023 CBC WITH DIFFE RENTI AL/PL ATELE T neutrophils 65 % notest ab. Not Available [facility] ([facility]) [address] [facility], [place], [address], 09/03/2023 06:18:33 09/02/19 24 09/02/2023 CBC WITH DIFFE RENTI AL/PL ATELE T lymphs 23 % notest ab. Not Available [facility] ([facility]) [address] [facility], [place], [address], 09/03/2023 06:18:33 09/02/19 24 09/02/2023 CBC WITH DIFFE RENTI AL/PL ATELE T monocytes 9 % notest ab. Not Available [facility] ([facility]) [address] [facility], [place], [address], 09/03/2023 06:18:33 09/02/19 24 09/02/2023 CBC WITH DIFFE RENTI AL/PL ATELE T eos 1 % notest ab. Not Available [facility] ([facility]) [address] [place], [address], 09/03/2023 06:18:33 09/02/19 24 09/02/2023 CBC WITH DIFFE RENTI AL/PL ATELE T basos 1 % notest ab. Not Available [facility] ([facility]) [address] [place], [address], 09/03/2023 06:18:33 09/02/19 24 09/02/2023 CBC WITH DIFFE RENTI AL/PL ATELE T neutrophils (absolute) 3.9 x10e3 /uL 1.4-7. 0 Not Available [facility] ([facility]) [address] [place], [address], 09/03/2023 06:18:33 09/02/19 24 09/02/2023 CBC WITH DIFFE RENTI AL/PL ATELE T lymphs (absolute) 1.3 x10e3 /uL 0.7-3. 1 Not Available [facility] ([facility]) [address] [place], [address], 09/03/2023 06:18:33 09/02/19 24 09/02/2023 CBC WITH DIFFE RENTI AL/PL ATELE T monocytes(ab solute) 0.5 x10e3 /uL 0.1-0. 9 Not Available [facility] ([facility]) [address] [place], [address], 09/03/2023 06:18:33 09/02/19 24 09/02/2023 CBC WITH DIFFE RENTI AL/PL ATELE T eos (absolute) 0.1 x10e3 /uL 0.0-0. 4 Not Available [facility] ([facility]) [address] [place], [address], 09/03/2023 06:18:33 09/02/19 24 09/02/2023 CBC WITH DIFFE RENTI AL/PL ATELE T baso (absolute) 0.0 x10e3 /uL 0.0-0. 2 Not Available [facility] ([facility]) [address] [facility], [place], [address], 09/03/2023 06:18:33 09/02/19 24 09/02/2023 CBC WITH DIFFE RENTI AL/PL ATELE T immature granulocytes 1 % notest ab. Not Available [facility] ([facility]) [address] [facility], [place], [address], 09/03/2023 06:18:33 09/02/19 24 09/02/2023 CBC WITH DIFFE RENTI AL/PL ATELE T immature grans (abs) 0.0 x10e3 /uL 0.0-0. 1 Not Available [facility] ([facility]) [address] [facility], [place], [address], 09/03/2023 06:18:33 09/02/19 24 09/03/2023 PROST ATE-S PECIF IC AG prostate specific Ag 0.4 NG/mL 0.0-4. 0 Alexus ECLIA metho dolog y. Accor ding to the Ameri can Urolo gical Assoc iatio n, Serum PSA shoul d decre ase and remai n at undet ectab le level s after radic al prost atect jeny. The AUA defin es bioch emica l recur rence as an initi al PSA value 0.2 ng/mL or great er follo wed by a subse quent confi rmato ry PSA value 0.2 ng/mL or great er. Value s obtai jacki with diffe rent assay metho ds or kits canno t be used inter beltrán eably . Resul ts canno t be inter prete d as absol hoh evide nce of the prese nce or absen ce of serge nant disea se. Not Available [facility] ([facility]) [address] [facility], [place], [address], 09/03/2023 06:18:34 09/02/19 24 09/03/2023 VITAM IN D, 25-HY DROXY vitamin D, 25-hydroxy 41.5 NG/mL 30.0-1 00.0 Vitam in D defic iency has been defin ed by the Insti tute of Medic ine and an Endoc rine Socie ty pract ice guide line as a level of serum 25-OH vitam in D less than 20 ng/mL (1,2) . The Endoc rine Socie ty went on to furth er defin e vitam in D insuf ficie ncy as a level betwe en 21 and 29 ng/mL (2). 1. IOM (Inst itute of Medic ine). 2010. Dieta ry refer ence intak es for calci um and D. Mesfin junior [place]: The [facility] . 2. Tiff milligan MF, Melyssa vo [place], Eryn off-F errgina i REIS, et al. Evalu ation , treat ment, and preve ntion of vitam in D defic iency : an Endoc rine Socie ty clini frandy pract ice guide line. JCEM. 2010; 96(7) :1911 -30. Not Available [facility] ([facility]) [address] [facility], [place], [address], 09/03/2023 06:18:35 01/01/20 24 01/02/2024 LIPID PANEL cholesterol, total 155 mg/dL 100-19 9 Not Available [facility] ([facility]) [address] [facility], [place], [address], 01/02/2024 10:11:45 01/01/20 24 01/02/2024 LIPID PANEL triglyceride s 47 mg/dL 0-149 Not Available [facility] ([facility]) [address] [place], [address], 01/02/2024 10:11:45 01/01/20 24 01/02/2024 LIPID PANEL HDL cholesterol 82 mg/dL >39 Not Available [facility] ([facility]) [address] [facility] [place], [address], 01/02/2024 10:11:45 01/01/20 24 01/02/2024 LIPID PANEL VLDL cholesterol frandy 10 mg/dL 5-40 Not Available [facility] ([facility]) [address] [facility] [place], [address], 01/02/2024 10:11:45 01/01/20 24 01/02/2024 LIPID PANEL LDL chol calc ([facility]) 63 mg/dL 0-99 Not Available [facility] ([facility]) [address] [facility] [place], [address], 01/02/2024 10:11:45 01/01/20 24 01/02/2024 COMP. METAB OLIC PANEL (14) glucose 113 mg/dL 70-99 above high normal Not Available [facility] ([facility]) [address] [place], [address], 01/02/2024 10:11:46 01/01/20 24 01/02/2024 COMP. METAB OLIC PANEL (14) BUN 14 mg/dL 8-27 Not Available [facility] ([facility]) [address] [facility] [place], [address], 01/02/2024 10:11:46 01/01/20 24 01/02/2024 COMP. METAB OLIC PANEL (14) creatinine 1.13 mg/dL 0.76-1 .27 Not Available [facility] ([facility]) [address] [facility] [place], [address], 01/02/2024 10:11:46 01/01/20 24 01/02/2024 COMP. METAB OLIC PANEL (14) eGFR 72 mL/mi n/1.7 3 >59 Not Available [facility] ([facility]) [address] [place], [address], 01/02/2024 10:11:46 01/01/20 24 01/02/2024 COMP. METAB OLIC PANEL (14) BUN/creatini ne ratio 12 10-24 Not Available [facility] ([facility]) [address] [facility] [place], [address], 01/02/2024 10:11:46 01/01/20 24 01/02/2024 COMP. METAB OLIC PANEL (14) sodium 142 mmol/ L 134-14 4 Not Available [facility] ([facility]) [address] [facility] [place], [address], 01/02/2024 10:11:46 01/01/20 24 01/02/2024 COMP. METAB OLIC PANEL (14) potassium 4.5 mmol/ L 3.5-5. 2 Not Available [facility] ([facility]) [address] [place], [address], 01/02/2024 10:11:46 01/01/20 24 01/02/2024 COMP. METAB OLIC PANEL (14) chloride 102 mmol/ L 96-106 Not Available [facility] ([facility]) [address] [place], [address], 01/02/2024 10:11:46 01/01/20 24 01/02/2024 COMP. METAB OLIC PANEL (14) carbon dioxide, total 26 mmol/ L - Not Available [facility] ([facility]) [address] [place], [address], 01/02/2024 10:11:46 01/01/20 24 01/02/2024 COMP. METAB OLIC PANEL (14) calcium 9.3 mg/dL 8.6-10 .2 Not Available [facility] ([facility]) [address] [place], [address], 01/02/2024 10:11:46 01/01/20 24 01/02/2024 COMP. METAB OLIC PANEL (14) protein, total 6.6 g/dL 6.0-8. 5 Not Available [facility] ([facility]) [address] [place], [address], 01/02/2024 10:11:46 01/01/20 24 01/02/2024 COMP. METAB OLIC PANEL (14) albumin 4.5 g/dL 3.9-4. 9 Not Available [facility] ([facility]) [address] [place], [address], 01/02/2024 10:11:46 01/01/20 24 01/02/2024 COMP. METAB OLIC PANEL (14) globulin, total 2.1 g/dL 1.5-4. 5 Not Available [facility] ([facility]) [address] [place], [address], 01/02/2024 10:11:46 01/01/20 24 01/02/2024 COMP. METAB OLIC PANEL (14) bilirubin, total 0.3 mg/dL 0.0-1. 2 Not Available [facility] ([facility]) [address] [place], [address], 01/02/2024 10:11:46 01/01/20 24 01/02/2024 COMP. METAB OLIC PANEL (14) alkaline phosphatase 41 IU/L 44-121 below low normal Not Available [facility] ([facility]) [address] [place], [address], 01/02/2024 10:11:46 01/01/20 24 01/02/2024 COMP. METAB OLIC PANEL (14) AST (SGOT) 44 IU/L 0-40 above high normal Not Available [facility] ([facility]) [address] [place], [address], 01/02/2024 10:11:46 01/01/20 24 01/02/2024 COMP. METAB OLIC PANEL (14) ALT (SGPT) 40 IU/L 0-44 Not Available [facility] ([facility]) [address] [facility], [place], [address], 01/02/2024 10:11:46 01/01/20 24 01/02/2024 CBC WITH DIFFE RENTI AL/PL ATELE T WBC 4.8 x10e3 /uL 3.4-10 .8 Simba ified by repea t lissa sis Not Available [facility] ([facility]) [address] [facility], [place], [address], 01/02/2024 10:11:46 01/01/20 24 01/02/2024 CBC WITH DIFFE RENTI AL/PL ATELE T RBC 4.15 x10e6 /uL 4.14-5 .80 Not Available [facility] ([facility]) [address] [facility], [place], [address], 01/02/2024 10:11:46 01/01/20 24 01/02/2024 CBC WITH DIFFE RENTI AL/PL ATELE T hemoglobin 14.0 g/dL 13.0-1 7.7 Not Available [facility] ([facility]) [address] [facility], [place], [address], 01/02/2024 10:11:46 01/01/20 24 01/02/2024 CBC WITH DIFFE RENTI AL/PL ATELE T hematocrit 40.4 % 37.5-5 1.0 Not Available [facility] ([facility]) [address] [facility], [place], [address], 01/02/2024 10:11:46 01/01/20 24 01/02/2024 CBC WITH DIFFE RENTI AL/PL ATELE T MCV 97 fL 79-97 Not Available [facility] ([facility]) [address] [place], [address], 01/02/2024 10:11:46 01/01/20 24 01/02/2024 CBC WITH DIFFE RENTI AL/PL ATELE T MCH 33.7 pg 26.6-3 3.0 above high normal Not Available [facility] ([facility]) [address] [place], [address], 01/02/2024 10:11:46 01/01/20 24 01/02/2024 CBC WITH DIFFE RENTI AL/PL ATELE T MCHC 34.7 g/dL 31.5-3 5.7 Not Available [facility] ([facility]) [address] [facility], [place], [address], 01/02/2024 10:11:46 01/01/20 24 01/02/2024 CBC WITH DIFFE RENTI AL/PL ATELE T RDW 12.6 % 11.6-1 5.4 Not Available [facility] ([facility]) [address] [place], [address], 01/02/2024 10:11:46 01/01/20 24 01/02/2024 CBC WITH DIFFE RENTI AL/PL ATELE T platelets 122 x10e3 /uL 150-45 0 below low normal Not Available [facility] ([facility]) [address] [place], [address], 01/02/2024 10:11:46 01/01/20 24 01/02/2024 CBC WITH DIFFE RENTI AL/PL ATELE T neutrophils 56 % notest ab. Not Available [facility] ([facility]) [address] [place], [address], 01/02/2024 10:11:46 01/01/20 24 01/02/2024 CBC WITH DIFFE RENTI AL/PL ATELE T lymphs 32 % notest ab. Not Available [facility] ([facility]) [address] [place], [address], 01/02/2024 10:11:46 01/01/20 24 01/02/2024 CBC WITH DIFFE RENTI AL/PL ATELE T monocytes 10 % notest ab. Not Available [facility] ([facility]) [address] [facility], [place], [address], 01/02/2024 10:11:46 01/01/20 24 01/02/2024 CBC WITH DIFFE RENTI AL/PL ATELE T eos 1 % notest ab. Not Available [facility] ([facility]) [address] [facility], [place], [address], 01/02/2024 10:11:46 01/01/20 24 01/02/2024 CBC WITH DIFFE RENTI AL/PL ATELE T basos 1 % notest ab. Not Available [facility] ([facility]) [address] [facility], [place], [address], 01/02/2024 10:11:46 01/01/20 24 01/02/2024 CBC WITH DIFFE RENTI AL/PL ATELE T neutrophils (absolute) 2.6 x10e3 /uL 1.4-7. 0 Not Available [facility] ([facility]) [address] [facility], [place], [address], 01/02/2024 10:11:46 01/01/20 24 01/02/2024 CBC WITH DIFFE RENTI AL/PL ATELE T lymphs (absolute) 1.5 x10e3 /uL 0.7-3. 1 Not Available [facility] ([facility]) [address] [facility], [place], [address], 01/02/2024 10:11:46 01/01/20 24 01/02/2024 CBC WITH DIFFE RENTI AL/PL ATELE T monocytes(ab solute) 0.5 x10e3 /uL 0.1-0. 9 Not Available [facility] ([facility]) [address] [facility], [place], [address], 01/02/2024 10:11:46 01/01/20 24 01/02/2024 CBC WITH DIFFE RENTI AL/PL ATELE T eos (absolute) 0.1 x10e3 /uL 0.0-0. 4 Not Available [facility] ([facility]) [address] [place], [address], 01/02/2024 10:11:46 01/01/20 24 01/02/2024 CBC WITH DIFFE RENTI AL/PL ATELE T baso (absolute) 0.0 x10e3 /uL 0.0-0. 2 Not Available [facility] [facility] [address] [facility], [place], [address], 01/02/2024 10:11:46 01/01/20 24 01/02/2024 CBC WITH DIFFE RENTI AL/PL ATELE T immature granulocytes 0 % notest ab. Not Available [facility] ([facility]) [address] [place], [address], 01/02/2024 10:11:46 01/01/20 24 01/02/2024 CBC WITH DIFFE RENTI AL/PL ATELE T immature grans (abs) 0.0 x10e3 /uL 0.0-0. 1 Not Available [facility] ([facility]) [address] [place], [address], 01/02/2024 10:11:46 01/01/20 24 01/02/2024 PROST ATE-S PECIF IC AG prostate specific Ag 0.1 NG/mL 0.0-4. 0 Alexus ECLIA metho dolog y. Accor ding to the [employer]i can [employer] i[employer] n, Serum PSA shoul d decre ase and remai n at undet ectab le level s after radic al prost atect jeny. The AUA defin es bioch emica l recur rence as an initi al PSA value 0.2 ng/mL or great er follo wed by a subse quent confi rmato ry PSA value 0.2 ng/mL or great er. Value s obtai jacki with diffe rent assay metho ds or kits canno t be used inter beltrán eably . Resul ts canno t be inter prete d as absol hoh evide nce of the prese nce or absen ce of serge smart se. Not Available [facility] ([facility]) [address] [facility], [place], [address], 01/02/2024 10:11:47 02/11/20 24 03/13/2024 Fungu s ident ified in Speci men by Cultu re specimen source identified EAR,LE FT SPEC DESCR IPTIO N EAR,L EFT 02/10 4:48 PM CDT [facility] Not Available Not Available 09/02/2024 14:45:23 02/11/20 24 03/13/2024 Fungu s ident ified in Speci men by Cultu re service comment NO SPECIA L REQUES T SPECI AL REQUE STS NO SPECI AL REQUE ST 02/10 4:48 PM CDT [facility] Not Available Not Available 09/02/2024 14:45:23 02/11/20 24 03/13/2024 Fungu s ident ified in Speci men by Cultu re stain result: NO YEAST OR FUNGAL ELEMEN TS SEEN STAIN RESUL T: NO YEAST OR FUNGA L ELEME NTS SEEN 02/10 7:43 PM CDT [facility] Not Available Not Available 09/02/2024 14:45:23 02/11/20 24 03/13/2024 Fungu s ident ified in Speci men by Cultu re bacteria identified in specimen by culture NO FUNGUS ISOLAT ED AT 4 WEEKS. CULTU RE RESUL T NO FUNGU S ISOLA PRAVEENA AT 4 WEEKS . 03/13 11:59 AM CDT [facility] Not Available Not Available 09/02/2024 14:45:23 02/11/20 24 02/14/2024 Bacte kayleigh ident ified in Speci men by Anaer obe cultu re specimen source identified EAR,LE FT SPEC DESCR IPTIO N EAR,L EFT 02/10 4:[address] [facility] Not Available Not Available 09/02/2024 14:45:23 02/11/20 24 02/14/2024 Bacte kayleigh ident ified in Speci men by Anaer obe cultu re service comment NO SPECIA L REQUES T SPECI AL REQUE STS NO SPECI AL REQUE ST 02/10 4:[address] [facility] Not Available Not Available 09/02/2024 14:45:23 02/11/20 24 02/14/2024 Bacte kayleigh ident ified in Speci men by Anaer obe cultu re microscopic observation [identifier] in specimen by gram stain MANY WHITE BLOOD CELLS SEEN GRAM STAIN RESUL T MANY WHITE BLOOD CELLS SEEN 02/10 7:[address] [facility] Not Available Not Available 09/02/2024 14:45:23 02/11/20 24 02/14/2024 Bacte kayleigh ident ified in Speci men by Anaer obe cultu re microscopic observation [identifier] in specimen by gram stain FEW GRAM POSITI VE COCCI GRAM STAIN RESUL T FEW GRAM POSIT OANH COCCI 02/10 7:[address] [facility] Not Available Not Available 09/02/2024 14:45:23 02/11/20 24 02/14/2024 Bacte kayleigh ident ified in Speci men by Anaer obe cultu re microscopic observation [identifier] in specimen by gram stain MODERA TE GRAM NEGATI VE RODS GRAM STAIN RESUL T MODER ATE GRAM NEGAT OANH RODS 02/10 7:[address] [facility] Not Available Not Available 09/02/2024 14:45:23 02/11/20 24 02/14/2024 Bacte kayleigh ident ified in Speci men by Anaer obe cultu re bacteria identified in specimen by culture SPARSE GROWTH OF CITROB ACTER KOSERI NOTE: ORGANI SM MAY DEVELO P RESIST ANCE AFTER 3 TO 4 DAYS OF THERAP Y WITH THIRD GENERA TION CEPHAL OSPORI NS. TESTIN G OF REPEAT ISOLAT ES MAY BE WARRAN PRAVEENA. abnormal CULTU RE RESUL T SPARS E GROWT H OF CITRO BACTE R KOSER I NOTE: ORGAN ISM MAY DEVEL OP RESIS TANCE AFTER 3 TO 4 DAYS OF THERA PY WITH THIRD GENER ATION CEPHA LOSPO RINS. TESTI NG OF REPEA T ISOLA TATUM MAY BE WARRA NTED. (A) 02/15 7:[address] [facility] Not Available Not Available 09/02/2024 14:45:23 02/11/20 24 02/14/2024 Bacte kayleigh ident ified in Speci men by Anaer obe cultu re bacteria identified in specimen by culture SPARSE GROWTH OF KLEBSI PATY (ENTER OBACTE R) AEROGE DAVON abnormal CULTU RE RESUL T SPARS E GROWT H OF KLEBS IELLA (ENTE ROBAC TER) AEROG CLYDE (A) 02/15 7:[address] [facility] Not Available Not Available 09/02/2024 14:45:23 02/11/20 24 02/14/2024 Bacte kayleigh ident ified in Speci men by Anaer obe cultu re bacteria identified in specimen by culture SPARSE GROWTH OF NORMAL SKIN MIKE, SUSCEP TIBILI TIES NOT ROUTIN LES PERFOR MED. CULTU RE RESUL T SPARS E GROWT H OF SAUL L SKIN MIKE , SUSCE PTIBI LITIE S NOT ROUTI MALINDA PERFO RMED. 02/15 7:[address] [facility] Not Available Not Available 09/02/2024 14:45:23 02/11/20 24 02/14/2024 Bacte kayleigh ident ified in Speci men by Anaer obe cultu re bacteria identified in specimen by culture NOTE: ANAERO BIC CULTUR ES ARE ROUTIN LES SCREEN ED FOR BOTH AEROBI C AND ANAERO BIC ORGANI SMS. CULTU RE RESUL T NOTE: ANAER OBIC CULTU RES ARE ROUTI MALINDA SCREE JACKI FOR BOTH AEROB IC AND ANAER OBIC ORGAN ISMS. 02/15 7:07 AM CDT [facility] Not Available Not Available 09/02/2024 14:45:23 02/11/20 24 02/14/2024 Bacte kayleigh ident ified in Speci men by Anaer obe cultu re interpretati on and review of laboratory results Abnorm al Not Available Not Available 14:45:23 06/21/20 24 06/22/2024 LIPID PANEL cholesterol, total 179 mg/dL 100-19 9 Not Available [facility] ([facility]) [address] [place], [address], 06/22/2024 13:09:59 06/21/20 24 06/22/2024 LIPID PANEL triglyceride s 67 mg/dL 0-149 Not Available [facility] ([facility]) [address] [place], [address], 06/22/2024 13:09:59 06/21/20 24 06/22/2024 LIPID PANEL HDL cholesterol 84 mg/dL >39 Not Available [facility] ([facility]) [address] [place], [address], 06/22/2024 13:09:59 06/21/20 24 06/22/2024 LIPID PANEL VLDL cholesterol frandy 13 mg/dL 5-40 Not Available [facility] ([facility]) [address] [place], [address], 06/22/2024 13:09:59 06/21/20 24 06/22/2024 LIPID PANEL LDL chol calc ([facility]) 82 mg/dL 0-99 Not Available [facility] ([facility]) [address] [place], [address], 06/22/2024 13:09:59 06/21/20 24 06/22/2024 COMP. METAB OLIC PANEL (14) glucose 106 mg/dL 70-99 above high normal Not Available [facility] ([facility]) [address] [place], [address], 06/22/2024 13:10:00 06/21/20 24 06/22/2024 COMP. METAB OLIC PANEL (14) BUN 17 mg/dL 8-27 Not Available [facility] ([facility]) [address] [facility], [place], [address], 06/22/2024 13:10:00 06/21/20 24 06/22/2024 COMP. METAB OLIC PANEL (14) creatinine 0.97 mg/dL 0.76-1 .27 Not Available [facility] ([facility]) [address] [facility], [place], [address], 06/22/2024 13:10:00 06/21/20 24 06/22/2024 COMP. METAB OLIC PANEL (14) eGFR 87 mL/mi n/1.7 3 >59 Not Available [facility] ([facility]) [address] [facility], [place], [address], 06/22/2024 13:10:00 06/21/20 24 06/22/2024 COMP. METAB OLIC PANEL (14) BUN/creatini ne ratio 18 10-24 Not Available [facility] ([facility]) [address] [facility], [place], [address], 06/22/2024 13:10:00 06/21/20 24 06/22/2024 COMP. METAB OLIC PANEL (14) sodium 142 mmol/ L 134-14 4 Not Available [facility] ([facility]) [address] [facility], [place], [address], 06/22/2024 13:10:00 06/21/20 24 06/22/2024 COMP. METAB OLIC PANEL (14) potassium 4.5 mmol/ L 3.5-5. 2 Not Available [facility] ([facility]) [address] [facility], [place], [address], 06/22/2024 13:10:00 06/21/20 24 06/22/2024 COMP. METAB OLIC PANEL (14) chloride 102 mmol/ L 96-106 Not Available [facility] ([facility]) [address] [place], [address], 06/22/2024 13:10:00 06/21/20 24 06/22/2024 COMP. METAB OLIC PANEL (14) carbon dioxide, total 26 mmol/ L 20-29 Not Available [facility] ([facility]) [address] [place], [address], 06/22/2024 13:10:00 06/21/20 24 06/22/2024 COMP. METAB OLIC PANEL (14) calcium 10.1 mg/dL 8.6-10 .2 Not Available [facility] ([facility]) [address] [place], [address], 06/22/2024 13:10:00 06/21/20 24 06/22/2024 COMP. METAB OLIC PANEL (14) protein, total 6.7 g/dL 6.0-8. 5 Not Available [facility] ([facility]) [address] [facility], [address], 06/22/2024 13:10:00 06/21/20 24 06/22/2024 COMP. METAB OLIC PANEL (14) albumin 4.4 g/dL 3.9-4. 9 Not Available [facility] ([facility]) [address] [facility] [place], [address], 06/22/2024 13:10:00 06/21/20 24 06/22/2024 COMP. METAB OLIC PANEL (14) globulin, total 2.3 g/dL 1.5-4. 5 Not Available [facility] ([facility]) [address] [facility], [address], 06/22/2024 13:10:00 06/21/20 24 06/22/2024 COMP. METAB OLIC PANEL (14) bilirubin, total 0.2 mg/dL 0.0-1. 2 Not Available [facility] ([facility]) [address] [facility], [place], [address], 06/22/2024 13:10:00 06/21/20 24 06/22/2024 COMP. METAB OLIC PANEL (14) alkaline phosphatase 42 IU/L 44-121 below low normal Not Available [facility] ([facility]) [address] [facility], [place], [address], 06/22/2024 13:10:00 06/21/20 24 06/22/2024 COMP. METAB OLIC PANEL (14) AST (SGOT) 29 IU/L 0-40 Not Available [facility] ([facility]) [address] [facility], [place], [address], 06/22/2024 13:10:00 06/21/20 24 06/22/2024 COMP. METAB OLIC PANEL (14) ALT (SGPT) 24 IU/L 0-44 Not Available [facility] ([facility]) [address] [facility], [place], [address], 06/22/2024 13:10:00 06/21/20 24 06/22/2024 CBC WITH DIFFE RENTI AL/PL ATELE T WBC 4.5 x10e3 /uL 3.4-10 .8 Not Available [facility] ([facility]) [address] [facility], [place], [address], 06/22/2024 13:10:02 06/21/20 24 06/22/2024 CBC WITH DIFFE RENTI AL/PL ATELE T RBC 3.98 x10e6 /uL 4.14-5 .80 below low normal Not Available [facility] ([facility]) [address] [facility], [place], [address], 06/22/2024 13:10:02 06/21/20 24 06/22/2024 CBC WITH DIFFE RENTI AL/PL ATELE T hemoglobin 13.7 g/dL 13.0-1 7.7 Not Available [facility] ([facility]) [address] [facility], [place], [address], 06/22/2024 13:10:02 06/21/20 24 06/22/2024 CBC WITH DIFFE RENTI AL/PL ATELE T hematocrit 39.6 % 37.5-5 1.0 Not Available [facility] ([facility]) [address] [facility], [place], [address], 06/22/2024 13:10:02 06/21/20 24 06/22/2024 CBC WITH DIFFE RENTI AL/PL ATELE T MCV 100 fL 79-97 above high normal Not Available [facility] ([facility]) [address] [facility], [place], [address], 06/22/2024 13:10:02 06/21/20 24 06/22/2024 CBC WITH DIFFE RENTI AL/PL ATELE T MCH 34.4 pg 26.6-3 3.0 above high normal Not Available [facility] ([facility]) [address] [facility], [place], [address], 06/22/2024 13:10:02 06/21/20 24 06/22/2024 CBC WITH DIFFE RENTI AL/PL ATELE T MCHC 34.6 g/dL 31.5-3 5.7 Not Available [facility] ([facility]) [address] [facility], [place], [address], 06/22/2024 13:10:02 06/21/20 24 06/22/2024 CBC WITH DIFFE RENTI AL/PL ATELE T RDW 12.6 % 11.6-1 5.4 Not Available [facility] ([facility]) [address] [facility], [place], [address], 06/22/2024 13:10:02 06/21/20 24 06/22/2024 CBC WITH DIFFE RENTI AL/PL ATELE T platelets 165 x10e3 /uL 150-45 0 Not Available [facility] ([facility]) [address] [facility], [place], [address], 06/22/2024 13:10:02 06/21/20 24 06/22/2024 CBC WITH DIFFE RENTI AL/PL ATELE T neutrophils 50 % notest ab. Not Available [facility] ([facility]) [address] [facility], [place], [address], 06/22/2024 13:10:02 06/21/20 24 06/22/2024 CBC WITH DIFFE RENTI AL/PL ATELE T lymphs 34 % notest ab. Not Available [facility] ([facility]) [address] [facility], [place], [address], 06/22/2024 13:10:02 06/21/20 24 06/22/2024 CBC WITH DIFFE RENTI AL/PL ATELE T monocytes 11 % notest ab. Not Available [facility] ([facility]) [address] [facility], [place], [address], 06/22/2024 13:10:02 06/21/20 24 06/22/2024 CBC WITH DIFFE RENTI AL/PL ATELE T eos 3 % notest ab. Not Available [facility] ([facility]) [address] [facility], [place], [address], 06/22/2024 13:10:02 06/21/20 24 06/22/2024 CBC WITH DIFFE RENTI AL/PL ATELE T basos 1 % notest ab. Not Available [facility] ([facility]) [address] [facility], [place], [address], 06/22/2024 13:10:02 06/21/20 24 06/22/2024 CBC WITH DIFFE RENTI AL/PL ATELE T neutrophils (absolute) 2.3 x10e3 /uL 1.4-7. 0 Not Available [facility] ([facility]) [address] [facility], [place], [address], 06/22/2024 13:10:02 06/21/20 24 06/22/2024 CBC WITH DIFFE RENTI AL/PL ATELE T lymphs (absolute) 1.5 x10e3 /uL 0.7-3. 1 Not Available [facility] ([facility]) [address] [facility], [place], [address], 06/22/2024 13:10:02 06/21/20 24 06/22/2024 CBC WITH DIFFE RENTI AL/PL ATELE T monocytes(ab solute) 0.5 x10e3 /uL 0.1-0. 9 Not Available [facility] ([facility]) [address] [facility], [place], [address], 06/22/2024 13:10:02 06/21/20 24 06/22/2024 CBC WITH DIFFE RENTI AL/PL ATELE T eos (absolute) 0.1 x10e3 /uL 0.0-0. 4 Not Available [facility] ([facility]) [address] [facility], [place], [address], 06/22/2024 13:10:02 06/21/20 24 06/22/2024 CBC WITH DIFFE RENTI AL/PL ATELE T baso (absolute) 0.0 x10e3 /uL 0.0-0. 2 Not Available [facility] ([facility]) [address] [facility], [place], [address], 06/22/2024 13:10:02 06/21/20 24 06/22/2024 CBC WITH DIFFE RENTI AL/PL ATELE T immature granulocytes 1 % notest ab. Not Available [facility] ([facility]) [address] [facility], [place], [address], 06/22/2024 13:10:02 06/21/20 24 06/22/2024 CBC WITH DIFFE RENTI AL/PL ATELE T immature grans (abs) 0.0 x10e3 /uL 0.0-0. 1 Not Available [facility] ([facility]) [address] [facility], [place], [address], 06/22/2024 13:10:02 06/21/20 24 06/22/2024 PHENY TOIN (DILA NTIN) , SERUM phenytoin (dilantin), serum 11.7 ug/mL 10.0-2 0.0 Detec tion Limit = 0.8 <0.8 Indic ates None Detec praveena Not Available [facility] ([facility]) [address] [facility], [place], [address], 06/22/2024 13:10:04 12/29/19 24 02/26/2017 colon oscop y proce dure (PROC ) No observ ation record ed. [email or web address] Not Available 2023 16:15:25 03/16/20 24 03/16/2024 CT, tempo ral bone, w/ contr ast No observ ation record ed. [facility] [address] [place], [address], 03/17/2024 09:46:45 06/27/20 24 06/27/2024 XR, lumba r spine No observ ation record ed. [facility] [address] [place], [address], 07/08/2024 11:37:20 06/27/20 24 06/27/2024 LDCT, chest , for lung cance r scree nagi No observ ation record ed. [facility] [address] [place], [address], 07/08/2024 11:37:20 Result Notes None recorded. Problems Name Problem SNOMED Code Status Onset Date Resolution Date Notes Provider Name and Address Organization Details Recorded Time Screening for cardiovascu lar system disease Active 2023 E[place]QU[place]EL Od[place] [facility] 4 14:59:32 Screening for malignant neoplasm of prostate Active 2023 [place]QU[place]EL Od[place] [facility] 4 14:59:33 Underweight 058000373 Active 2023 Ney Tony [place] [facility] 4 14:59:41 Seizure disorder 558895166 Active 2023 Ney [place] [facility] 4 14:59:42 Thrombocyto penic disorder 900237716 Active 2023 Ney [place] [facility] 4 14:59:42 Smoker 28800011 Active 2023 Ney [place] [facility] 4 14:59:47 Otorrhea of bilateral ears 7431748475760 105 Active 2023 Rosendo Arana MD Attn: Santiago petti,[address] [place], [address], [place] [facility] 4 22:38:25 Osteoporosi s 39134503 Active 2023 Rosendo Arana MD Attn: Santiago petit,[address] [place], [address], [place] [facility] 4 13:22:44 Pneumococca l vaccination declined 723201671 Active 2023 Rosendo Arana MD Attn: Santiago petit,[address] [place], [address], [place] [facility] 4 13:23:38 Influenza vaccination declined 679261443 Active 2023 Rosendo Arana MD Attn: Santiago petit,[address] [place], [address], [place] [facility] 4 13:23:40 Colon cancer screening declined 7120026523415 9 Active 2023 Rosendo Arana MD Attn: Santiago petit,[address] [place], [address], [place] [facility] 4 13:23:41 Problem Notes None recorded. Procedures Surgical History None recorded. Imaging Results Imaging Date Name Status LastModified by [facility] Details LastModified Time 02/26/2017 colon[facility] (PROC[email or web address] Information not available 12/29/2023 16:15:25 03/16/2024 CT, temporal bone, w/ contrast completed [facility] [address] [place], [address], 03/17/2024 09:46:45 06/27/2024 XR, lumbar spine completed [facility] [address] [place], [address], 07/08/2024 11:37:20 06/27/2024 LDCT, chest, for lung cancer screening completed [facility] [address] [place], [address], 07/08/2024 11:37:20 Procedure Notes None recorded. Medical Equipment None Reported. Allergies No known drug allergies Medications Name Sig Start Date Stop Date Status Note LastModified by Organization Details LastModified Time prednisone 10 mg tablet TAKE 6 TABLETS ONCE DAILY FOR 4 DAYS, THEN 4 TABLETS ONCE DAILY FOR 4 DAYS, THEN 3 TABLETS ONCE DAILY FOR 4 DAYS, THEN 2 TABLETS ONCE DAILY FOR 4 DAYS, THEN 1 TABLET ONCE DAILY FOR 4 DAYS active Not Available Not Available No t Available phenytoin sodium extended 100 mg capsule TAKE 1 CAPSULE EVERY 12 HOURS DIRECTED active Not Available Not Available No t Available methylpredn isolone 4 mg tablets in a dose pack 06/21 completed Not Available Not Available Not Available amoxicillin 875 mg-potassiu m clavulanate 125 mg tablet TAKE 1 TABLET TWICE A DAY WITH MORNING AND EVENING MEAL FOR 14 DAYS active Not Available Not Available No t Available ciprofloxac in 0.3 %-dexametha sone 0.1 % ear drops,suspe nsion 06/21 completed Not Available Not Available Not Available Dilantin 30 mg capsule TAKE 1 CAPSULE DAILY IN THEEVENIN G active Not Available Not Available No t Available Vitals Date Recorded Body weight Oxygen saturation Oxygen saturation in Arterial blood by Pulse oximetry Heart rate Systolic blood pressure Diastolic blood pressure Provider Name and Address Organization Details Last Updated DateTime 4 32275.6 8 g 97 % 97 % 87 /min 122 mm[Hg] 70 mm[Hg] Nicolle Monahan [place] - [facility] 4 11:08:45 Date Recorded Body height Body mass index (BMI) Body weight Heart rate Body temperature Oxygen saturation Oxygen saturation in Arterial blood by Pulse oximetry Systolic blood pressure Diastolic blood pressure Provider Name and Address Organization Details Last Updated DateTime 4 167.64 cm 14.8 kg/m2 51372.5 g 73 /min 98 [degF] 97 % 97 % 110 mm[Hg] 72 mm[Hg] Alicia Rodriguez MA [facility] 4 14:18:31 Date Recorded Body height Body mass index (BMI) Body weight Heart rate Oxygen saturation Oxygen saturation in Arterial blood by Pulse oximetry Systolic blood pressure Diastolic blood pressure Provider Name and Address Organization Details Last Updated DateTime 4 167.64 cm 14.8 kg/m2 04699.7 8 g 72 /min 100 % 100 % 100 mm[Hg] 62 mm[Hg] Sandhya Sarmiento MA [facility] 4 11:23:08 Social History Question Answer Notes LastModified by Organizat ion Details LastModified Time Tobacco Smoking Status Current Every Day Smoker Nicolle Monahan MA null, [facility] 09/02/2023 11:02:36 Do You Have An Advance Directive? No Information not available 09/02/2023 What Is Your Level Of Alcohol Consumption? Occasional Information not available 09/02/2023 Are You Blind Or Do You Have Difficulty Seeing? No Information not available 09/02/2023 What Is Your Level Of Caffeine Consumption? Occasional Information not available 09/02/2023 In The 14 Days Before Symptom Onset, Have You Had Close Contact With A Laboratory-confi rmed COVID-19 While That Case Was Ill? No Information not available 09/02/2023 In The 14 Days Before Symptom Onset, Have You Had Close Contact With A Person Who Is Under Investigation For COVID-19 While That Person Was Ill? No Information not available 09/02/2023 Have You Been To An Area Known To Be High Risk For COVID-19? No Information not available 09/02/2023 Are You Currently Employed? No Disablility Information not available 09/02/2023 Are You Deaf Or Do You Have Serious Difficulty Hearing? No Information not available 09/02/2023 What Type Of Diet Are You Following? REGULAR Information not available 09/02/2023 Are There Any Guns Present In Your Home? Yes Information not available 09/02/2023 What Was The Date Of Your Most Recent Tobacco Screening? 06/21/2024 Information not available 06/21/2024 What Is Your Current Pack Years? [email or web address] ears Information not available 09/02/2023 What Is Your Relationship Status? Information not available 09/02/2023 Do You Use Your Seat Belt Or Car Seat Routinely? Yes Information not available 09/02/2023 Do You Have Smoke And Carbon Monoxide Detectors In Your Home? Yes Information not available 09/02/2023 At What Age Did You Start Smoking Tobacco? 13 Information not available 09/02/2023 How Much Tobacco Do You Smoke? 3+ PPD Information not available 09/02/2023 Do You Feel Stressed (tense, Restless, Nervous, Or Anxious, Or Unable To Sleep At Night)? [id number] Information not available 09/02/2023 Do You Use Any Illicit Or Recreational Drugs? No Information not available 09/02/2023 Do You Use Sunscreen Routinely? No Information not available 09/02/2023 Has Tobacco Cessation Counseling Been Provided? Yes Information not available 09/02/2023 On What Date Was Tobacco Cessation Counseling Provided? 06/21/2024 Information not available 06/21/2024 How Many Years Have You Smoked Tobacco? 40 Information not available 09/02/2023 Do You Or Have You Ever Used Any Other Forms Of Tobacco Or Nicotine? No Information not available 09/02/2023 Sex: Male Functional Status Question Answer Note LastModified by Organization D etails LastModified Time Are you able to care for yourself? Yes Information n ot available 09/02/2023 What is your exercise level? None Information not available 09/02/2023 Mental Status None recorded. Family History Relationship Description Onset Age of this Age Resolved Age Notes LastModified by Organization Details LastModified Time Father No current problems or disability [email or web address] Not available 08/07 11:01:36 Mother No current problems or disability [email or web address] Not available 08/07 11:01:36 Medical History Condition Response Seizures/Epilepsy Y Stroke Y Immunizations Vaccine Type Date Status Note Provider Nam e and Address Organization Details Recorded Time COVID-19, mRNA, LNP-S, PF, 100 mcg/0.5mL dose or 50 mcg/0.25mL dose 11/15/2020 completed [place], [place] - [facility] 12/29/2023 16:12:22 COVID-19, mRNA, LNP-S, PF, 100 mcg/0.5mL dose or 50 mcg/0.25mL dose 12/13/2020 completed [place] - [facility] 12/29/2023 16:12:22 Past Encounters Encounter ID Performer Location Encounter Start Date Encounter Closed Date Diagnosis/Indication Diagnosis SNOMED-CT Code Diagnosis ICD10 Code Diagnosis Note [id number] MD Siva Goodson (Adult Med) [address] [place] [phone] 09/02/2023 10:53:26 09/02/2023 11:33:17 Thrombocytopenic disorder 082503449 D69.6 Vitamin D deficiency 347 64176 E55.9 Screening for malignant neoplasm of prostate 629510865 Z12.5 Screening for cardiovascular system disease 565775498 Z13.6 Seizure disorder 2824396 02 G40.332 [id number] MD Siva Goodson (Adult Med) [address] [place] [phone] 12/30/2023 13:48:51 12/30/2023 15:11:11 Smoker 88651847 F17.200 Underweight 761557206 R6 3.6 Seizure disorder 5140429 02 G40.909 Thrombocyt openic disorder 403283539 D69.6 Screening for cardiovascular system disease 331982953 Z13.6 Screening for malignant neoplasm of prostate 633928040 Z12.5 Otorrhea o f bilateral ears 2485987408 913281 H92.13 [id number] Rosendo Arana MD [facility] (Adult [facility]) [address] [place] [address] 06/21/2024 11:07:54 06/21/2024 12:31:55 Underweight 370434342 R63.6 Low back pain 230248080 M54.50 Seizure disorder 9523268 02 G40.909 Screening for cardiovascular system disease 400902056 Z13.6 Long-term drug therapy 307069386 Z79.899 Osteoporosis 07901980 M8 1.0 Colon canc er screening declined 5876075208 9109 Z53.20 Influenza vaccination declined 462877500 Z28.21 Pneumococc al vaccination declined 136031841 Z28.21 Health Concerns Section Related Observation LastModified by Organization Detai ls LastModified Time None Recorded Concern Status LastModified by Organization Details LastModified Time None Recorded Advance Directives Directive N: Payers Encounter Date Sequence Insurance Name Policy Number Policy Smith Covered Member ID Smith Member ID Guarantor Name 09/02/2023 1 [employer] - PRIME (MEDICARE REPLACEMENT/ ADVANTAGE - HMO) [id number] Gabrielcam DuarteSegovia [id number] Gabrielcam DuarteSegovia 12/30/2023 1 [employer] - PRIME (MEDICARE REPLACEMENT/ ADVANTAGE - HMO) [id number] Gabriel Segovia [id number] Gabriel Duarteford 06/21/2024 1 [employer] - PRIME (MEDICARE REPLACEMENT/ ADVANTAGE - HMO) [id number] Gabriel Ogle[place] Notes Date Note Type Note Provider Name and Address Organization Details Recorded Time 09/02/2023 text/html Low platelets fe lt to be from some liver disease from past alcohol use no bleeding low vitamin D needs to be checked seizure disorder stable on meds continue Rosendo Arana MD Attn: Accounting[address] [place], [address], [facility] 10/07/2023 20:28:57 12/30/2023 text/html Low platelets fe lt to be from some liver disease from alcohol use no bleeding low vitamin D needs to be checked seizure disorder stable on meds continue he continues to drink 3 or 4 times a week. No seizure activity still smokes Rosendo Arana MD Attn: Accounting[address] [facility], [place], [address], [facility] 12/30/2023 22:38:59 06/21/2024 text/html couple of weeks now some low back pain without trauma it is just underneath the costal margin and inferomedial towards the lumbar spine. Seizures none. Thrombocytopenia no bleeding. Rosendo Arana MD Attn: Accounting[address] [facility], [place], [address], [facility] 06/21/2024 13:25:08
--- OUTSIDE RECORDS SUMMARY | 2024-10-03 06:46 | XMS_ITS | CONTINUITY OF CARE DOCUMENT ---
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
--- OUTSIDE RECORDS SUMMARY | 2024-10-03 06:46 | XMS_ITS | Clinical Summary ---
Author Organization [facility] Address [address] [place] [address] Care Team Providers Care Acls Specialist Name Role Phone Unavailable Primary Care Provider Unavailabl e Social History Tobacco Use Types Packs/Day Years Used Date Smoking Tobacco: Never Assessed Sex and Gender Information Value Date Recorded Sex Assigned at Not on file Legal Sex Male 4:43 PM CDT Gender Identity Not on file Sexual Orientation Not on file Plan of Treatment Health Maintenance Due Date Last Done Comments Colorectal Cancer Screening Colonoscopy (10 Years) 1958 Hepatitis C 1976 DTaP, Tdap and Td Vaccines ( 1 - Tdap) 1977 Zoster Vaccines (1 of 2) 2008 Annual Medicare Wellness Visit 09/08/2023 Pneumococcal Vaccine: 65+ Ye ars (1 of 1 - PCV) 09/08/2023 COVID-19 Vaccine ( - 2023-2 5 season) 2024 RSV Immunization or 60+ Years (1 - 1-dose 75+ series) 2033 Meningococcal B Vaccine Aged Out No l onger eligible based on patient's age to complete this topic Meningococcal Vaccine Aged Out No rodrigo arley eligible based on patient's age to complete this topic RSV Immunizations Under 20 Months Aged Out No longer eligible based on patient's age to complete this topic Insurance AETNA
--- OUTSIDE RECORDS SUMMARY | 2024-10-03 06:46 | XMS_ITS | Clinical Summary ---
Author Organization [facility] Address [address] [place] [address] Care Team Providers Care Rn Neurosurgical Name Role Phone None, Physician Primary Care Provider Unavailabl e Source Comments [facility],non-owned Affiliates and Associated Physician Practices is amultiple site organization consisting of ambulatory clinics and hospital sitesin [place], [place], [place] and [place]. This disclosure is being madepursuant to the Care Everywhere program and may not contain all information available regarding this patient. Last updated 18.[facility] [email or web address] Allergies No known active allergies Medications * Be aware that medications may not be up to date on this document. Alwaysverify current medications with the patient. Medication Sig Dispensed Refills Start Date End Date Status Dilantin 30 MG capsule Take 1 (one) capsule by mouth once daily Active phenytoin ER (Dilantin) 100 MG capsule Take 1 (one) capsule by mouth 2 times daily Active calcium carbonate (Calcium 600) 600 MG tablet Take 1 (one) tablet by mouth daily with food Active Multiple Vitamin (MULTI VITAMIN DAILY PO) Take 1 tablet by mouth once daily Active Active Problems No known active problems Encounters Date Type Department Care Team Description 07/27/2024 Refill [facility] [address] [place] [phone] Efraín Koenig MD MEDICATION REFILL 07/25/2024 8:45 AM MOUNTER SOUSAPHONES Office Visit [facility] - [facility]NT [address] [place] [phone] Efraín Koenig MD Bilateral chronic serous otitis media (Primary Dx); ETD (Eustachian tube dysfunction), bilateral; Mixed conductive and sensorineural hearing loss of right ear with restricted hearing of left ear; Sensorineural hearing loss (SNHL) of left ear with restricted hearing of right ear; History of cholesteatoma; History of mastoidectomy 07/25/2024 Travel from Last 3 Months Immunizations Name Administration Dates Next Due Huy Yoder primary monovalent 12+ yr 0.5mL ,11/15/2020 Family History Medical History Relation Name Comments Dementia Mother Relation Name Status Comments Mother Social History Tobacco Use Types Packs/Day Years Used Date Smoking Tobacco: Every Day Cigarettes Smokeless Tobacco: Never Tobacco Cessation:Ready to Q uit: Not Asked; Counseling Given: Not Answered Comments:1 pack a day for 40yrs Alcohol Use Standard Drinks/Week Comments Yes 18 (1 standard drink = 0.6 oz pu re alcohol) Sex and Gender Information Value Date Recorded Sex Assigned at Not on file Gender Identity Not on file Sexual Orientation Not on file Last Filed Vital Signs Vital Sign Reading Time Taken Comments Blood Pressure 114/64 07/25/2024 8:12 AM MOUNTER SOUSAPHONES Pulse 73 07/25/2024 8:12 AM MOUNTER SOUSAPHONES Temperature - - Respiratory Rate - - Oxygen Saturation - - Inhaled Oxygen Concentration - - Weight 41.6 kg (91 lb 12.8 oz) 07/25/2024 8:12 A M MOUNTER SOUSAPHONES Height 165.1 cm (5' 5 ) 07/25/2024 8:12 AM MOUNTER SOUSAPHONES Body Mass Index 15.28 07/25/2024 8:12 AM MOUNTER SOUSAPHONES Plan of Treatment Upcoming Encounters Date Type Department Care Team (Late st Contact Info) Description 10/24/2024 9:15 AM CDT Office Visit [facility] [address] [place] [address], [place] [phone] Efraín Koenig MD [address] [place] [address] [place] [address] Health Maintenance Due Date Last Done Comments COLOGUARD (AGES 45-75) - COL ON CA SCREENING 1958 COLON MONITORING 1958 COLONOSCOPY - COLON CA SCREENING 1958 CT COLONOGRAPHY - COLON CA SCREENING 1958 Colorectal Cancer Screening 1958 FIT - COLON CA SCREENING 1958 FLEX SIG - COLON CA SCREENING 1958 LIPID TESTING 1958 HIV SCREENING 1973 HEPATITIS C SCREENING 09/02/1976 DTAP/TDAP/TD VACCINES (1 - Tdap) 1977 PNEUMOCOCCAL VACCINE 50+ (1 of 2 - PCV) 1977 ZOSTER VACCINE (1 of 2) 2008 AAA SCREENING 09/08/2023 COVID-19 VACCINE (3 - 2023-2 5 season) 2024 12/13/2020, 11/15/2020 INFLUENZA VACCINE (#1) 2024 DEPRESSION SCREENING 07/06/2024 MEDICARE AWV CALENDAR YEAR 2024 Respiratory Syncytial Virus (RSV) Vaccine Pt: or over 60 yrs (1 - 1-dose 75+ series) 2033 HEPATITIS B VACCINE Aged Out No longe r eligible based on patient's age to complete this topic HIB VACCINE Aged Out No longer eligi ble based on patient's age to complete this topic HPV VACCINE Aged Out No longer eligi ble based on patient's age to complete this topic MENINGOCOCCAL (Group B) VACCINE SHARED DECISION-MAKING Aged Out No longer eligible based on patient's age to complete this topic MENINGOCOCCAL GROUPS A/C/Y/W VACCINE Aged Out No longer eligible b ased on patient's age to complete this topic Care Teams Rn Neurosurgical Relationship Specialty Start Date End Date None, Physician [address] [place] [address] PCP - General 05/09/24
[2024-10-03 07:26] LABS: Estimated Glomerular Filt Rate > 60
== END 2024-10-03 06:44 | disposition home or self-care (01) ==
PROVIDERS: PCP Internal Medicine; Visit Provider Psychiatry & Neurology Neurology
DX: G40.909 Epilepsy, unspecified, not intractable, without status epilepticus (principal); G93.89 Other specified disorders of brain
CPT/HCPCS: 70470; Q9967

== ENCOUNTER 2024-11-17 12:52 | Outpatient (CLI) | payer MEDICARE, SELFPAY ==
--- NOTE | ~2024-11-17 | CT_ITS ---
EXAMINATION: CT IAC/mastoids BI wo con DATE: 11/17/2024 13:39 INDICATION: Cholesteatoma TECHNIQUE: Computed tomography (CT) of the temporal bones was performed without intravenous contrast. The dose-length product was 155.02 mGy-cm. COMPARISON: None FINDINGS: RIGHT TEMPORAL BONE: Partial right mastectomy with enlargement of the right external auditory canal and absent tympanic me mbrane. The scutum and ossicular chain are absent with either been eroded or surgically resected. The re is soft tissue surrounding a stapedial prosthesis. There is no effusion throughout the remaining m astoid air cells. The vestibule, cochlea, semicircular canals, internal auditory canal, vestibular aq ueduct and course of the facial nerve are normal. The jugular bulb and carotid canal are unremarkable . LEFT TEMPORAL BONE: Partial left mastoidectomy. There is fusion throughout the majority of the mastoid air cells as well as in the attic of the middle ear cavity. The external auditory canal, scutum and tympanic membrane a re normal. There is small amount of fluid versus soft tissue density along the posterior margin of th e acetabular chain and at Prussak space. The cochlea, vestibule, semicircular canals, oval window, ve stibular aqueduct and facial nerve course are normal. Jugular bulb and carotid canal are unremarkable . IMPRESSION: 1. Postoperative change of prior right partial mastoidectomy with resection or erosion of the scutum, tympanic membrane and ossicular chain. Large right mastoid effusion with fluid versus soft tissue woods rrounding a stapedial prosthesis. 2. Partial left mastoidectomy with additional small amount of fluid versus soft tissue at the attic o f the middle ear cavity and along the posterior margin of the ossicular chain including at Prussak's space. Reviewed, dictated and finalized at location A. IMPRESSION: 1. Postoperative change of prior right partial mastoidectomy with resection or erosion of the scutum, tympanic membrane and ossicular chain. Large right masto id effusion with fluid versus soft tissue surrounding a stapedial prosthesis. 2. Partial left mastoidectomy with additional small amount of fluid versus soft tissue at the attic of the middle ear cavity and along the posterior margin of the ossicular chain including at Prussak's space.
--- OUTSIDE RECORDS SUMMARY | 2024-11-17 13:01 | XMS_ITS | Clinical Summary ---
Author Organization [facility] Address [address] [place] [address] Care Team Providers Care Superintendent Pipelines Name Role Phone None, Physician Primary Care Provider Unavailabl e Source Comments [facility],non-owned Affiliates and Associated Physician Practices is amultiple site organization consisting of ambulatory clinics and hospital sitesin [place], [place]. This disclosure is being madepursuant to the Care Everywhere program and may not contain all information available regarding this patient. Last updated 18.[facility] [employer] Allergies No known active allergies Medications * Be aware that medications may not be up to date on this document. Alwaysverify current medications with the patient. Dilantin 30 MG capsule Take 1 (one) [...] Encounters Date Type Department Care Team Description 11/09/2024 Telephone [facility] [address], [address] [place] [phone] Efraín Koenig MD Appointment 11/04/2024 Telephone [facility] [address] [place] [address] Tania Perea RN Imaging 10/24/2024 9:15 AM CDT Office Visit [facility] [address] [place] [phone] Efraín Koenig MD History of cholesteatoma (Primary Dx); Bilateral chronic serous otitis media; ETD (Eustachian tube dysfunction), bilateral; Mixed conductive and sensorineural hearing loss of right ear with restricted hearing of left ear 10/24/2024 Travel from Last 3 Months Immunizations Immunization Administration Dates Next Due Huy Yoder primary [...] at Not on file Legal Sex Male 6:24 AM PROOF READER Gender Identity Not on file Sexual Orientation Not on file Last Filed Vital Signs Vital Sign Reading Time Taken Comments Blood Pressure 120/75 10/24/2024 8:41 AM CDT Pulse 73 10/24/2024 8:41 AM CDT Temperature - - Respiratory Rate - - Oxygen Saturation - - Inhaled Oxygen Concentration - - Weight 42.1 kg (92 lb 12.8 oz) 10/24/2024 8:41 A M CDT Height 165.1 cm (5' 5 ) 10/24/2024 8:41 AM CDT Body Mass Index 15.44 10/24/2024 8:41 AM CDT Plan of Treatment Upcoming Encounters Date Type Department Care Team (Late st Contact Info) Description 11/23/2024 11:00 AM CDT Testing Visit [facility] [address] [place] [phone] Anand Guardado, PhD [address] [place] [address] [place] [address] 11/23/2024 11:30 AM CDT Office Visit [facility]NT [address] [place] [phone] Efraín Koenig MD [address] [facility] [address] [place] [address] Health Maintenance Due Date Last Done Comments COLOGUARD (AGES 45-75) - COL ON CA SCREENING 1958 COLON MONITORING 1958 COLONOSCOPY - COLON CA SCREENING 1958 CT COLONOGRAPHY - COLON CA SCREENING 1958 Colorectal Cancer Screening 1958 FIT - COLON CA SCREENING 1958 FLEX SIG - COLON CA SCREENING 1958 LIPID TESTING 1958 HEPATITIS C SCREENING 09/02/1976 DTAP/TDAP/TD VACCINES (1 - Tdap) 1977 PNEUMOCOCCAL VACCINE 50+ (1 of 2 - PCV) 1977 ZOSTER VACCINE (1 of 2) 2008 AAA SCREENING 09/08/2023 COVID-19 VACCINE (3 - 2023-2 5 season) 2024 12/13/2020, 11/15/2020 DEPRESSION SCREENING 07/06/2024 MEDICARE AWV CALENDAR YEAR 2024 INFLUENZA VACCINE (Season Ended) 2025 Respiratory Syncytial Virus (RSV) Vaccine Pt: or [...] age to complete this topic Insurance [employer] MEDICARE ADV Care Teams Superintendent Pipelines Relationship Specialty Start Date End Date None, Physician [address] [place] [address] PCP - General 05/09/24
--- OUTSIDE RECORDS SUMMARY | 2024-11-17 13:01 | XMS_ITS | Data Portability ---
Author Organization [facility], Main Office Address [address] [place] [address] Assessment Encounter Date Assessment Date Assessment LastModified by Organization Details LastModified Time 11/19/2022 11/19/2022 Blood work continue current therapy diagnosis discussed in follow-up in 4 months [email or web address] Not available 11/29/2022 18:22:13 04/02/2023 04/02/2023 Will [...] medical illness return to clinic 6 months [email or web address] Not available 04/12/2023 18:24:32 Plan of Treatment Reminders Order Date Submit Date Provider Last Modified By Organization Details Last Modified Time Details Appointments None recorded. Lab lipid panel, serum 023 023 [facility] (Lab), [address] [place], [address], 3 18:16:07 phenytoin , total, serum 023 023 [facility] (Lab), [address] [place], [address], 3 18:16:26 CBC w/ auto diff 023 023 [facility] (Lab), [address] [place], [address], 3 17:43:25 CMP, serum or plasma 023 023 PJ [facility] (Lab), [address] [place], [address], 3 18:16:02 vitamin D, 25-hydrox y, total, serum 023 023 cyahl [facility] (Lab), [address] [place], [address], 3 11:06:13 Referral None recorded. Procedures None [...] cient : 30-10 0 ng/mL Not Available [facility] (Lab) [address] [place], [address], 01/08/2022 14:39:20 01/09/20 22 01/08/2022 LIPID PANEL cholesterol 150 mg/dL 140-19 9 NIH MESFIN NSUS RECOM MENDA TION FOR ROBERT STERO L: ADULT CHILD LOW RISK: <200 <170 BORDE RLINE : <200- 239 ----- HIGH RISK: >240 >200 Not Available [facility] (Lab) [address] [place], [address], 01/08/2022 14:30:41 01/09/20 22 01/08/2022 LIPID PANEL triglyceride s 79 mg/dL 0-150 NIH MESFIN NSUS REPOR T RECOM MENDA TION FOR TRIGL YCERI ANEESH: ADULT CHILD LOW RISK: <150 ----- BODER LINE: 150-1 99 ----- HIGH RISK: >200 ----- Not Available [facility] (Lab) [address] [place], [address], 01/08/2022 14:30:41 01/09/20 22 01/08/2022 LIPID PANEL HDL cholesterol 79 mg/dL 40- Not Available [facility] (Lab) [address] [place], [address], 01/08/2022 14:30:41 01/09/20 22 01/08/2022 LIPID PANEL [...] WILL NOT BE REPOR PRAVEENA. Not Available [facility] (Lab) [address] [place], [address], 01/08/2022 14:30:41 01/09/20 22 01/08/2022 COMPR EHENS OANH METAB OLIC PANEL carbon dioxide 28 mmol/ L 22-30 Not Available [facility] (Lab) [address] [place], [address], 01/08/2022 14:30:37 01/09/20 22 01/08/2022 COMPR EHENS OANH METAB OLIC PANEL sodium 138 mmol/ L 137-14 5 Not Available [facility] (Lab) [address] [place], [address], 01/08/2022 14:30:37 01/09/20 22 01/08/2022 COMPR EHENS OANH METAB OLIC PANEL potassium 4.1 mmol/ L 3.5-5. 1 Not Available [facility] (Lab) [address] [place], [address], 01/08/2022 14:30:37 01/09/20 22 01/08/2022 COMPR EHENS OANH METAB OLIC PANEL chloride 103 mmol/ L 98-107 Not Available [facility] (Lab) [address] [place], [address], 01/08/2022 14:30:37 01/09/20 22 01/08/2022 COMPR EHENS OANH METAB OLIC PANEL anion gap 11.1 mmol/ L 14-22 low Not Available [facility] (Lab) [address] [place], [address], 01/08/2022 14:30:37 01/09/20 22 01/08/2022 COMPR EHENS OANH METAB OLIC PANEL glucose 111 mg/dL 70-99 high Not Available [facility] (Lab) [address] [place], [address], 01/08/2022 14:30:37 01/09/20 22 01/08/2022 COMPR EHENS OANH METAB OLIC PANEL BUN 13 mg/dL 8-19 Not Available [facility] (Lab) [address] [place], [address], 01/08/2022 14:30:37 01/09/20 22 01/08/2022 COMPR EHENS OANH METAB OLIC PANEL creatinine 1.05 mg/dL 0.66-1 .25 Not Available [facility] (Lab) [address] [place], [address], 01/08/2022 14:30:37 01/09/20 22 01/08/2022 COMPR EHENS OANH METAB OLIC PANEL GFR >60 Refer ence Range : [place] ge GFR Healt hy Adult : >60 [...] calcu lator is avail able on the [facility] websi te: [email or web address] :[email or web address]/pr ofess ional s/kdo qi/gf r_cal culat or Not Available [facility] (Lab) [address] [place], [address], 01/08/2022 14:30:37 01/09/20 22 01/08/2022 COMPR EHENS OANH METAB OLIC PANEL alkaline phosphatase 42 U/L 38-126 Not Available [facility] (Lab) [address] [place], [address], 01/08/2022 14:30:37 01/09/20 22 01/08/2022 COMPR EHENS OANH METAB OLIC PANEL alanine aminotransfe rase 26 U/L 0-50 Not Available [facility] (Lab) [address] [place], [address], 01/08/2022 14:30:37 01/09/20 22 01/08/2022 COMPR EHENS OANH METAB OLIC PANEL aspartate aminotransfe rase 38 U/L 15-46 Not Available [facility] (Lab) [address] [place], [address], 01/08/2022 14:30:37 01/09/20 22 01/08/2022 COMPR EHENS OANH METAB OLIC PANEL bilirubin, total 0.70 mg/dL 0.20-1 .30 Not Available [facility] (Lab) [address] [place], [address], 01/08/2022 14:30:37 01/09/20 22 01/08/2022 COMPR EHENS OANH METAB OLIC PANEL calcium 9.6 mg/dL 8.4-10 .2 Not Available [facility] (Lab) [address] [place], [address], 01/08/2022 14:30:37 01/09/20 22 01/08/2022 COMPR EHENS OANH METAB OLIC PANEL total protein 6.6 g/dL 6.3-8. 2 Not Available [facility] (Lab) [address] [place], [address], 01/08/2022 14:30:37 01/09/20 22 01/08/2022 COMPR EHENS OANH METAB OLIC PANEL albumin 4.5 g/dL 3.0-4. 4 high Not Available [facility] (Lab) [address] [place], [address], 01/08/2022 14:30:37 01/09/20 22 01/08/2022 COMPR EHENS OANH METAB OLIC PANEL globulin 2.1 g/dL 2.6-4. 2 low Not Available [facility] (Lab) [address] [place], [address], 01/08/2022 14:30:37 01/09/20 22 01/08/2022 COMPR EHENS OANH METAB OLIC PANEL A/G ratio 2.1 ratio 1.0-2. 0 high Not Available [facility] (Lab) [address] [place], [address], 01/08/2022 14:30:37 01/09/20 22 01/08/2022 CBC W/O DIFFE RENTI AL mean red cell volume 97.1 fL 80.0-9 7.0 high Not Available [facility] (Lab) [address] [place], [address], 01/08/2022 12:51:01 01/09/20 22 01/08/2022 CBC W/O DIFFE RENTI AL white blood cells 4.2 x10'3 /uL 4.2-10 .8 Not Available [facility] (Lab) [address] [place], [address], 01/08/2022 12:51:01 01/09/20 22 01/08/2022 CBC W/O DIFFE RENTI AL red blood cells 4.14 x10'6 /uL 4.10-5 .80 Not Available [facility] (Lab) [address] [place], [address], 01/08/2022 12:51:01 01/09/20 22 01/08/2022 CBC W/O DIFFE RENTI AL hemoglobin 13.9 g/dL 13.2-1 7.0 Not Available [facility] (Lab) [address] [place], [address], 01/08/2022 12:51:01 01/09/20 22 01/08/2022 CBC W/O DIFFE RENTI AL hematocrit 40.2 % 39.3-5 0.0 Not Available [facility] (Lab) [address] [place], [address], 01/08/2022 12:51:01 01/09/20 22 01/08/2022 CBC W/O DIFFE RENTI AL mean red cell hemoglobin 33.6 pg 27.0-3 3.0 high Not Available [facility] (Lab) [address] [place], [address], 01/08/2022 12:51:01 01/09/20 22 01/08/2022 CBC W/O DIFFE RENTI AL mean RBC HGB concentratio n 34.6 g/dL 31.0-3 6.0 Not Available [facility] (Lab) [address] [place], [address], 01/08/2022 12:51:01 01/09/20 22 01/08/2022 CBC W/O DIFFE RENTI AL red cell distribution width 12.6 % 11.8-1 5.5 Not Available [facility] (Lab) [address] [place], [address], 01/08/2022 12:51:01 01/09/20 22 01/08/2022 CBC W/O DIFFE RENTI AL platelets 115 x10'3 /uL 150-40 0 low Not Available [facility] (Lab) [address] [place], [address], 01/08/2022 12:51:01 01/09/20 22 01/08/2022 CBC W/O DIFFE RENTI AL mean platelet volume 10.3 fL 9.0-12 .4 Not Available [facility] (Lab) [address] [place], [address], 01/08/2022 12:51:01 11/20/19 23 11/19/2022 CBC/C OMPLE TE BLD COUNT W/DIF F white blood cells 4.6 x10'3 /uL 4.2-10 .8 Not Available [facility] (Lab) [address] [place], [address], 11/19/2022 17:43:25 11/20/19 23 11/19/2022 CBC/C OMPLE TE BLD COUNT W/DIF F red blood cells 4.08 x10'6 /uL 4.10-5 .80 low Not Available [facility] (Lab) [address] [place], [address], 11/19/2022 17:43:25 11/20/19 23 11/19/2022 CBC/C OMPLE TE BLD COUNT W/DIF F hemoglobin 13.7 g/dL 13.2-1 7.0 Not Available [facility] (Lab) [address] [place], [address], 11/19/2022 17:43:25 11/20/19 23 11/19/2022 CBC/C OMPLE TE BLD COUNT W/DIF F hematocrit 40.9 % 39.3-5 0.0 Not Available [facility] (Lab) [address] [place], [address], 11/19/2022 17:43:25 11/20/19 23 11/19/2022 CBC/C OMPLE TE BLD COUNT W/DIF F mean red cell volume 100.2 fL 80.0-9 7.0 high Not Available [facility] (Lab) [address] [place], [address], 11/19/2022 17:43:25 11/20/19 23 11/19/2022 CBC/C OMPLE TE BLD COUNT W/DIF F mean red cell hemoglobin 33.6 pg 27.0-3 3.0 high Not Available [facility] (Lab) [address] [place], [address], 11/19/2022 17:43:25 11/20/19 23 11/19/2022 CBC/C OMPLE TE BLD COUNT W/DIF F mean RBC HGB concentratio n 33.5 g/dL 31.0-3 6.0 Not Available [facility] (Lab) [address] [place], [address], 11/19/2022 17:43:25 11/20/19 23 11/19/2022 CBC/C OMPLE TE BLD COUNT W/DIF F red cell distribution width 13.2 % 11.8-1 5.5 Not Available [facility] (Lab) [address] [place], [address], 11/19/2022 17:43:25 11/20/19 23 11/19/2022 CBC/C OMPLE TE BLD COUNT W/DIF F platelets 122 x10'3 /uL 150-40 0 low Not Available [facility] (Lab) [address] [place], [address], 11/19/2022 17:43:25 11/20/19 23 11/19/2022 CBC/C OMPLE TE BLD COUNT W/DIF F mean platelet volume 10.0 fL 9.0-12 .4 Not Available [facility] (Lab) [address] [place], [address], 11/19/2022 17:43:25 11/20/19 23 11/19/2022 CBC/C OMPLE TE BLD COUNT W/DIF F neutrophils 57.8 % 39.0-7 2.0 Not Available [facility] (Lab) [address] [place], [address], 11/19/2022 17:43:25 11/20/19 23 11/19/2022 CBC/C OMPLE TE BLD COUNT W/DIF F lymphocytes 31.0 % 16.0-4 7.0 Not Available [facility] (Lab) [address] [place], [address], 11/19/2022 17:43:25 11/20/19 23 11/19/2022 CBC/C OMPLE TE BLD COUNT W/DIF F monocytes 9.3 % 5.0-12 .0 Not Available [facility] (Lab) [address] [place], [address], 11/19/2022 17:43:25 11/20/19 23 11/19/2022 CBC/C OMPLE TE BLD COUNT W/DIF F eosinophils 1.3 % 1.0-7. 0 Not Available [facility] (Lab) [address] [place], [address], 11/19/2022 17:43:25 11/20/19 23 11/19/2022 CBC/C OMPLE TE BLD COUNT W/DIF F basophils 0.4 % 0.0-2. 0 Not Available [facility] (Lab) [address] [place], [address], 11/19/2022 17:43:25 11/20/19 23 11/19/2022 CBC/C OMPLE TE BLD COUNT W/DIF F immature granulocytes 0.2 % 0.00-0 .50 Not Available [facility] (Lab) [address] [place], [address], 11/19/2022 17:43:25 11/20/19 23 11/19/2022 CBC/C OMPLE TE BLD COUNT W/DIF F neutrophils, absolute count 2.68 x10'3 /uL 1.5-8. 0 Not Available [facility] (Lab) [address] [place], [address], 11/19/2022 17:43:25 11/20/19 23 11/19/2022 CBC/C OMPLE TE BLD COUNT W/DIF F lymphocytes, absolute count 1.44 x10'3 /uL 1.07-3 .43 Not Available [facility] (Lab) [address] [place], [address], 11/19/2022 17:43:25 11/20/19 23 11/19/2022 CBC/C OMPLE TE BLD COUNT W/DIF F monocytes, absolute count 0.43 x10'3 /uL 0.29-0 .99 Not Available [facility] (Lab) [address] [place], [address], 11/19/2022 17:43:25 11/20/19 23 11/19/2022 CBC/C OMPLE TE BLD COUNT W/DIF F eosinophils, absolute count 0.06 x10'3 /uL 0.02-0 .53 Not Available [facility] (Lab) [address] [place], [address], 11/19/2022 17:43:25 11/20/19 23 11/19/2022 CBC/C OMPLE TE BLD COUNT W/DIF F basophils, absolute count 0.02 x10'3 /uL 0.01-0 .08 Not Available [facility] (Lab) [address] [place], [address], 11/19/2022 17:43:25 11/20/19 23 11/19/2022 CBC/C OMPLE TE BLD COUNT W/DIF F immature granulocytes ,absolute 0.01 x10'3 /uL 0.00-0 .05 Not Available [facility] (Lab) [address] [place], [address], 11/19/2022 17:43:25 11/20/19 23 11/19/2022 CBC/C OMPLE TE BLD COUNT W/DIF F nucleated red blood cells 0.0 % -0 Not Available [facility] (Lab) [address] [place], [address], 11/19/2022 17:43:25 11/20/19 23 11/19/2022 CBC/C OMPLE TE BLD COUNT W/DIF F NRBC# 0.00 x10'3 /uL Not Available [facility] (Lab) [address] [place], [address], 11/19/2022 17:43:25 11/20/19 23 11/19/2022 COMPR EHENS OANH METAB OLIC PANEL sodium 138 mmol/ L 137-14 5 Not Available [facility] (Lab) [address] [place], [address], 11/19/2022 18:16:02 11/20/19 23 11/19/2022 COMPR EHENS OANH METAB OLIC PANEL potassium 3.9 mmol/ L 3.5-5. 1 Not Available [facility] (Lab) [address] [place], [address], 11/19/2022 18:16:02 11/20/19 23 11/19/2022 COMPR EHENS OANH METAB OLIC PANEL chloride 103 mmol/ L 98-107 Not Available [facility] (Lab) [address] [place], [address], 11/19/2022 18:16:02 11/20/19 23 11/19/2022 COMPR EHENS OANH METAB OLIC PANEL carbon dioxide 28 mmol/ L 22-30 Not Available [facility] (Lab) [address] [place], [address], 11/19/2022 18:16:02 11/20/19 23 11/19/2022 COMPR EHENS OANH METAB OLIC PANEL anion gap 10.9 mmol/ L 14-22 low Not Available [facility] (Lab) [address] [place], [address], 11/19/2022 18:16:02 11/20/19 23 11/19/2022 COMPR EHENS OANH METAB OLIC PANEL glucose 104 mg/dL 70-99 high Not Available [facility] (Lab) [address] [place], [address], 11/19/2022 18:16:02 11/20/19 23 11/19/2022 COMPR EHENS OANH METAB OLIC PANEL BUN 10 mg/dL 8-19 Not Available [facility] (Lab) [address] [place], [address], 11/19/2022 18:16:02 11/20/19 23 11/19/2022 COMPR EHENS OANH METAB OLIC PANEL creatinine 0.93 mg/dL 0.66-1 .25 Not Available [facility] (Lab) [address] [place], [address], 11/19/2022 18:16:02 0511/19/2022 COMPR EHENS OANH METAB OLIC PANEL GFR >60 Refer ence Range : [place] ge GFR Healt hy Adult : >60 [...] calcu lator is avail able on the [facility] websi te: [email or web address] :[email or web address] [email or web address] s/[email or web address] qi/gf r_cal culat or Not Available [facility] (Lab) [address] [place], [address], 11/19/2022 18:16:02 11/20/1911/19/2022 COMPR EHENS OANH METAB OLIC PANEL alkaline phosphatase 43 U/L 38-126 Not Available [facility] (Lab) [address] [place], [address], 11/19/2022 18:16:02 11/20/1911/19/2022 COMPR EHENS OANH METAB OLIC PANEL alanine aminotransfe rase 29 U/L 0-50 Not Available [facility] (Lab) [address] [place], [address], 11/19/2022 18:16:02 11/20/19 23 11/19/2022 COMPR EHENS OANH METAB OLIC PANEL aspartate aminotransfe rase 43 U/L 15-46 Not Available [facility] (Lab) [address] [place], [address], 11/19/2022 18:16:02 11/20/19 23 11/19/2022 COMPR EHENS OANH METAB OLIC PANEL bilirubin, total 0.50 mg/dL 0.20-1 .30 Not Available [facility] (Lab) [address] [place], [address], 11/19/2022 18:16:02 11/20/19 23 11/19/2022 COMPR EHENS OANH METAB OLIC PANEL calcium 9.4 mg/dL 8.4-10 .2 Not Available [facility] (Lab) [address] [place], [address], 11/19/2022 18:16:02 11/20/19 23 11/19/2022 COMPR EHENS OANH METAB OLIC PANEL total protein 7.0 g/dL 6.3-8. 2 Not Available [facility] (Lab) [address] [place], [address], 11/19/2022 18:16:02 11/20/19 23 11/19/2022 COMPR EHENS OANH METAB OLIC PANEL albumin 4.5 g/dL 3.0-4. 4 high Not Available [facility] (Lab) [address] [place], [address], 11/19/2022 18:16:02 11/20/19 23 11/19/2022 COMPR EHENS OANH METAB OLIC PANEL globulin 2.5 g/dL 2.6-4. 2 low Not Available [facility] (Lab) [address] [place], [address], 11/19/2022 18:16:02 11/20/19 23 11/19/2022 COMPR EHENS OANH METAB OLIC PANEL A/G ratio 1.8 ratio 1.0-2. 0 Not Available [facility] (Lab) [address] [place] [address], [address], 11/19/2022 18:16:02 11/20/19 23 11/19/2022 LIPID PANEL cholesterol 179 mg/dL 140-19 9 NIH MESFIN NSUS RECOM MENDA TION FOR ROBERT STERO L: ADULT CHILD LOW RISK: <200 <170 BORDE RLINE : <200- 239 ----- HIGH RISK: >240 >200 Not Available [facility] (Lab) [address] [place] [address], [address], 11/19/2022 18:16:06 11/20/19 23 11/19/2022 LIPID PANEL triglyceride s 101 mg/dL 0-150 NIH MESFIN NSUS REPOR T RECOM MENDA TION FOR TRIGL YCERI ANEESH: ADULT CHILD LOW RISK: <150 ----- BODER LINE: 150-1 99 ----- HIGH RISK: >200 ----- Not Available [facility] (Lab) [address] [place] [address], [address], 11/19/2022 18:16:06 11/20/19 23 11/19/2022 LIPID PANEL HDL cholesterol 102 mg/dL 40- Not Available [facility] (Lab) [address] [place] [address], [address], 11/19/2022 18:16:06 11/20/1911/19/2022 LIPID PANEL LDL cholesterol, calculated 57 mg/dL [...] WILL NOT BE REPOR PRAVEENA. Not Available [facility] (Lab) [address] [place], [address], 11/19/2022 18:16:06 11/20/19 23 11/19/2022 PHENY TOIN/ LOURDES TIN dilantin 13.2 mcg/m L 10.0-2 0.0 Not Available [facility] (Lab) [address] [place], [address], 11/19/2022 18:16:26 11/20/19 23 11/19/2022 VITAM IN D 25-HY DROXY [id number] 62.4 NG/mL 30-100 Vitam in D Statu s: Defic ient: <20 ng/mL Insuf ficie nt: 20-29 ng/mL Suffi cient : 30-10 0 ng/mL Not Available [facility] (Lab) [address] [place], [address], 11/19/2022 18:35:21 09/27/19 22 09/26/2021 bone densi ty [facility] [address] [place] [address] Patien t Name: CARLOS CHANDLER RD Access ion #: [id number] Sex: M : 1960 9 Locati [...] g/cm2 calciu m Page 1 of 2 [facility] Patien t Name: CARLOS CHANDLER RD Access ion #: [id number] Sex: M : 1960 9 Exam [...] 9:55 AM (CT) Page 2 of 2 [id number] [facility] (Imaging) [address] [place], [address], 09/03/2022 01:31:46 09/27/19 23 05/16/2022 LDCT, chest , for lung cance rafael lazar No observ ation record ed. [email or web address] Not Available 2022 10:57:18 06/27/20 24 06/27/2024 XR, lumba r spine [facility] [address] [facility] [place] [address] [phone] Patiandreea t Name: CARLOS CHANDLER RD Access ion #: [id number] Sex: M : 1960 9 Dictat [...] 2023 10:57: 21 AM Page 1 INTERFACE [facility] (Imaging) [address] [place], [address], 06/27/2024 11:59:36 06/27/20 24 06/27/2024 LDCT, chest , for lung cance r scree nagi [facility] [address] [facility] [place] [address] [phone] Patiandreea t Name: CARLOS CHANDLER RD Access ion #: [id number] Sex: M : 1960 9 Dictat [...] abdome n utiliz ing axial images . Valle l and sagitt al multip lanar reform [...] effusi on. There are no signif icant valle ry artery calcif icatio ns. Normal Page 1 [facility] [address] [place] [address] Patien t Name: CARLOS CHANDLER RD ion #: [id number] Sex: M : 1960 9 Dictat [...] 2023 11:01: 43 AM Page 2 INTERFACE [facility] ([facility]) [address] [place] [address], [address], 06/27/2024 12:04:06 Result Notes None recorded. Problems Name Problem SNOMED Code Status Onset Date Resolution Date Notes Provider Name and Address Organization Details Recorded Time Seizure disorder 867468584 Active Not Available [facility] 3 01:13:35 Blood glucose outside reference range 492596426 Active Not Available [facility] 3 [id number]|2024-11-17 13:02:00|2024-11-17 13:01:00|XMS_ITS|BKG DAEMON|External Medical Summaries|[id number]|" Data Portability Created on: November 17, 2024 Luca Carlos .[id number] : 1960 Sex: Male Author Organization [facility] Address [address] [place] [address] SHRUTHI Arthur [address] Care Team Providers Care Laboratory Associate Name Role Phone ROSENDO ARANA Primary Care Provider [phone] Assessment Encounter Date Assessment Date Assessment LastModified [...] months. Stay up-to-date on immunizations and screenings. [email or web address] Not available 10/07/2023 20:28:40 12/30/2023 12/30/2023 handouts [...] several ENTs would like to be referred [email or web address] Not available 12/30/2023 22:38:40 06/21/2024 06/21/2024 Continues to smoke counseled. Eating healthy foods care instructions x-ray lumbar spine check blood work and a Dilantin level he did not go see the insurance law specialist he says that office never contacted him he says he wants to wait and see what his counts look like with his next blood work follow up 4 months refuses colonoscopy and colon cancer screening refuses flu shot pneumococcal vaccination and COVID vaccination. [email or web address] Not available 06/21/2024 13:24:29 Plan of Treatment Reminders Order Date Submit Date Provider Last Modified By Organization Details Last Modified Time Details Appointments ANY 15 2024 11:00A Hermes Arana MD Not available Not available Not available Lab phenytoin , total, serum 2023 024 [facility], [address] [facility], [address], [address], 06/22/2024 13:10:04 lipid panel, serum 2023 024 [facility], [address], [address], [place], [address], 06/22/2024 13:09:59 CMP, serum or plasma 2023 024 [facility], [address], [address], [place], [address], 06/22/2024 13:10:00 CBC w/ auto diff 2023 024 [facility], [address], [address], [place], [address], 06/22/2024 13:10:02 PSA, total, serum or plasma 2023 024 [facility], [address], [address], [place], [address], 01/02/2024 10:11:47 CBC w/ auto diff 2023 024 [facility], [address], [address], [place], [address], 01/02/2024 10:11:46 CMP, serum or plasma 2023 024 [facility], [address], [address], [place], [address], 01/02/2024 10:11:46 lipid panel, serum 2023 024 [facility], [address], [address], [place], [address], 01/02/2024 10:11:45 PSA, total, serum or plasma 2023 024 [facility], [address], [address], [place], [address], 09/03/2023 06:18:34 vitamin D, 25-hydrox y, total, serum 2023 024 [facility], [address] [facility], [address], [place], [address], 09/03/2023 06:18:35 CBC w/ auto diff 2023 024 [facility], [address] [place] [address], [address], [place], [address], 09/03/2023 06:18:33 lipid panel, serum 2023 024 [facility], [address] [place] [address], [address], [place], [address], 09/03/2023 06:18:32 CMP, serum or plasma 2023 024 [facility], [address] [place] [address], [address], [place], [address], 09/03/2023 06:18:33 Referral ENT surgery referral 2023 024 [facility] Pacheco, [address] [facility], [place], [address], 05/12/2024 17:14:31 Procedures None recorded. Surgeries None recorded. Imaging XR, lumbar spine 2023 024 [facility] ([facility]), [address] [place], [address], 06/27/2024 12:01:44 Medication Orders None recorded. Patient TargetsNo targets recorded. Patient Instructions Encounter Date Encounter Id Patient Instructions Last Modified By Organization Details Last Modified Time 12/30/2023 [id number] Quitting Tobacco : Care Instructions [email or web address] Not available 12/30/2023 16:11:55 eating healthy foods: care instructions [email or web address] Not available 12/30/2023 16:11:55 06/21/2024 [id number] eating healthy foods: care instructions [email or web address] Not available 06/21/2024 12:38:46 Reason for Referral ENT Surgery Referral for [place] rrhea of bilateral ears Referring Physician: Rosendo Arana, Internal Medicine, Encounter Date: 12/30/2023 Results Created Date Observation Date Name Description Value Unit Range Abnormal Flag Note LastModifiedBy Organization Detail LastModifiedTime 09/02/19 24 09/03/2023 LIPID PANEL cholesterol, total 171 mg/dL 100-19 9 Not Available [facility] ([facility]) [address] [place], [address], 09/03/2023 06:18:32 09/02/19 24 09/03/2023 LIPID PANEL triglyceride s 44 mg/dL 0-149 Not Available [facility] ([facility]) [address] [place], [address], 09/03/2023 06:18:32 09/02/19 24 09/03/2023 LIPID PANEL HDL cholesterol 101 mg/dL >39 Not Available [facility] ([facility]) [address] [place], [address], 09/03/2023 06:18:32 09/02/19 24 09/03/2023 LIPID PANEL VLDL cholesterol frandy 10 mg/dL 5-40 Not Available [facility] ([facility]) [address] [place], [address], 09/03/2023 06:18:32 09/02/19 24 09/03/2023 LIPID PANEL LDL chol calc ([facility]) 60 mg/dL 0-99 Not Available [facility] ([facility]) [address] [place], [address], 09/03/2023 06:18:32 09/02/19 24 09/03/2023 COMP. METAB OLIC PANEL (14) glucose 119 mg/dL 70-99 above high normal Not Available [facility] ([facility]) [address] [place], [address], 09/03/2023 06:18:33 09/02/19 24 09/03/2023 COMP. METAB OLIC PANEL (14) BUN 13 mg/dL 8-27 Not Available [facility] ([facility]) [address] [place], [address], 09/03/2023 06:18:33 09/02/19 24 09/03/2023 COMP. METAB OLIC PANEL (14) creatinine 1.03 mg/dL 0.76-1 .27 Not Available [facility] ([facility]) [address] [place], [address], 09/03/2023 06:18:33 09/02/19 24 09/03/2023 COMP. METAB OLIC PANEL (14) eGFR 81 mL/mi n/1.7 3 >59 Not Available [facility] ([facility]) [address] [place], [address], 09/03/2023 06:18:33 09/02/19 24 09/03/2023 COMP. METAB OLIC PANEL (14) BUN/creatini ne ratio 13 10-24 Not Available [facility] ([facility]) [address] [place], [address], 09/03/2023 06:18:33 09/02/19 24 09/03/2023 COMP. METAB OLIC PANEL (14) sodium 145 mmol/ L 134-14 4 above high normal Not Available [facility] ([facility]) [address] [place], [address], 09/03/2023 06:18:33 09/02/19 24 09/03/2023 COMP. METAB OLIC PANEL (14) potassium 4.6 mmol/ L 3.5-5. 2 Not Available [facility] ([facility]) [address] [place], [address], 09/03/2023 06:18:33 09/02/19 24 09/03/2023 COMP. METAB OLIC PANEL (14) chloride 106 mmol/ L 96-106 Not Available [facility] ([facility]) [address] [facility] [place], [address], 09/03/2023 06:18:33 09/02/19 24 09/03/2023 COMP. METAB OLIC PANEL (14) carbon dioxide, total 25 mmol/ L 20- Not Available [facility] ([facility]) [address] [facility], [place], [address], 09/03/2023 06:18:33 09/02/19 24 09/03/2023 COMP. METAB OLIC PANEL (14) calcium 9.6 mg/dL 8.6-10 .2 Not Available [facility] ([facility]) [address] [facility], [place], [address], 09/03/2023 06:18:33 09/02/19 24 09/03/2023 COMP. METAB OLIC PANEL (14) protein, total 6.6 g/dL 6.0-8. 5 Not Available [facility] ([facility]) [address] [place], [address], 09/03/2023 06:18:33 09/02/19 24 09/03/2023 COMP. METAB OLIC PANEL (14) albumin 4.6 g/dL 3.9-4. 9 Not Available [facility] ([facility]) [address] [place], [address], 09/03/2023 06:18:33 09/02/19 24 09/03/2023 COMP. METAB OLIC PANEL (14) globulin, total 2.0 g/dL 1.5-4. 5 Not Available [facility] ([facility]) [address] [facility] [place], [address], 09/03/2023 06:18:33 09/02/19 24 09/03/2023 COMP. METAB OLIC PANEL (14) A/G ratio 2.3 1.2-2. 2 above high normal Not Available [facility] ([facility]) [address] [place], [address], 09/03/2023 06:18:33 09/02/19 24 09/03/2023 COMP. METAB OLIC PANEL (14) bilirubin, total 0.3 mg/dL 0.0-1. 2 Not Available [facility] ([facility]) [address] [place], [address], 09/03/2023 06:18:33 09/02/19 24 09/03/2023 COMP. METAB OLIC PANEL (14) alkaline phosphatase 43 IU/L 44-121 below low normal Not Available [facility] ([facility]) [address] [place], [address], 09/03/2023 06:18:33 09/02/19 24 09/03/2023 COMP. METAB OLIC PANEL (14) AST (SGOT) 47 IU/L 0-40 above high normal Not Available [facility] ([facility]) [address] [place], [address], 09/03/2023 06:18:33 09/02/19 24 09/03/2023 COMP. METAB OLIC PANEL (14) ALT (SGPT) 40 IU/L 0-44 Not Available [facility] ([facility]) [address] [place], [address], 09/03/2023 06:18:33 09/02/19 24 09/02/2023 CBC WITH DIFFE RENTI AL/PL ATELE T WBC 5.9 x10e3 /uL 3.4-10 .8 Not Available [facility] ([facility]) [address] [place], [address], 09/03/2023 06:18:33 09/02/19 24 09/02/2023 CBC WITH DIFFE RENTI AL/PL ATELE T RBC 4.16 x10e6 /uL 4.14-5 .80 Not Available [facility] ([facility]) [address] [facility], [place], [address], 09/03/2023 06:18:33 09/02/19 24 09/02/2023 CBC WITH DIFFE RENTI AL/PL ATELE T hemoglobin 14.1 g/dL 13.0-1 7.7 Not Available [facility] ([facility]) [address] [facility], [place], [address], 09/03/2023 06:18:33 09/02/19 24 09/02/2023 CBC WITH DIFFE RENTI AL/PL ATELE T hematocrit 40.0 % 37.5-5 1.0 Not Available [facility] ([facility]) [address] [facility], [place], [address], 09/03/2023 06:18:33 09/02/19 24 09/02/2023 CBC WITH DIFFE RENTI AL/PL ATELE T MCV 96 fL 79-97 Not Available [facility] ([facility]) [address] [place], [address], 09/03/2023 06:18:33 09/02/19 24 09/02/2023 CBC WITH DIFFE RENTI AL/PL ATELE T MCH 33.9 pg 26.6-3 3.0 above high normal Not Available [facility] ([facility]) [address] [facility], [place], [address], 09/03/2023 06:18:33 09/02/19 24 09/02/2023 CBC WITH DIFFE RENTI AL/PL ATELE T MCHC 35.3 g/dL 31.5-3 5.7 Not Available [facility] ([facility]) [address] [place], [address], 09/03/2023 06:18:33 09/02/19 24 09/02/2023 CBC WITH DIFFE RENTI AL/PL ATELE T RDW 12.7 % 11.6-1 5.4 Not Available [facility] ([facility]) [address] [facility], [place], [address], 09/03/2023 06:18:33 09/02/19 24 09/02/2023 CBC WITH DIFFE RENTI AL/PL ATELE T platelets 132 x10e3 /uL 150-45 0 below low normal Not Available [facility] ([facility]) [address] [facility], [place], [address], 09/03/2023 06:18:33 09/02/19 24 09/02/2023 CBC WITH DIFFE RENTI AL/PL ATELE T neutrophils 65 % notest ab. Not Available [facility] ([facility]) [address] [facility], [place], [address], 09/03/2023 06:18:33 09/02/19 24 09/02/2023 CBC WITH DIFFE RENTI AL/PL ATELE T lymphs 23 % notest ab. Not Available [facility] ([facility]) [address] [facility], [place], [address], 09/03/2023 06:18:33 09/02/19 24 09/02/2023 CBC WITH DIFFE RENTI AL/PL ATELE T monocytes 9 % notest ab. Not Available [facility] ([facility]) [address] [facility], [place], [address], 09/03/2023 06:18:33 09/02/19 24 09/02/2023 CBC WITH DIFFE RENTI AL/PL ATELE T eos 1 % notest ab. Not Available [facility] ([facility]) [address] [facility], [place], [address], 09/03/2023 06:18:33 09/02/19 24 09/02/2023 CBC WITH DIFFE RENTI AL/PL ATELE T basos 1 % notest ab. Not Available [facility] ([facility]) [address] [facility], [place], [address], 09/03/2023 06:18:33 09/02/19 24 09/02/2023 CBC WITH DIFFE RENTI AL/PL ATELE T neutrophils (absolute) 3.9 x10e3 /uL 1.4-7. 0 Not Available [facility] ([facility]) [address] [facility], [place], [address], 09/03/2023 06:18:33 09/02/19 24 09/02/2023 CBC WITH DIFFE RENTI AL/PL ATELE T lymphs (absolute) 1.3 x10e3 /uL 0.7-3. 1 Not Available [facility] ([facility]) [address] [facility], [place], [address], 09/03/2023 06:18:33 09/02/19 24 09/02/2023 CBC WITH DIFFE RENTI AL/PL ATELE T monocytes(ab solute) 0.5 x10e3 /uL 0.1-0. 9 Not Available [facility] ([facility]) [address] [facility], [place], [address], 09/03/2023 06:18:33 09/02/19 24 09/02/2023 CBC WITH DIFFE RENTI AL/PL ATELE T eos (absolute) 0.1 x10e3 /uL 0.0-0. 4 Not Available [facility] ([facility]) [address] [facility], [place], [address], 09/03/2023 06:18:33 09/02/19 24 09/02/2023 CBC WITH DIFFE RENTI AL/PL ATELE T baso (absolute) 0.0 x10e3 /uL 0.0-0. 2 Not Available [facility] ([facility]) [address] [facility], [place], [address], 09/03/2023 06:18:33 09/02/19 24 09/02/2023 CBC WITH DIFFE RENTI AL/PL ATELE T immature granulocytes 1 % notest ab. Not Available [facility] ([facility]) [address] [facility], [place], [address], 09/03/2023 06:18:33 09/02/19 24 09/02/2023 CBC WITH DIFFE RENTI AL/PL ATELE T immature grans (abs) 0.0 x10e3 /uL 0.0-0. 1 Not Available [facility] ([facility]) [address] [facility], [place], [address], 09/03/2023 06:18:33 09/02/19 24 09/03/2023 PROST ATE-S [...] t be inter prete d as absol [place] evide nce of the prese nce or absen ce of serge [place] se. Not Available [facility] ([facility]) [address] [facility], [place], [address], 09/03/2023 06:18:34 09/02/19 24 09/03/2023 VITAM IN [...] um and D. Mesfin junior [place]: [facility] [employer] [facility] . 2. Tiff milligan MF, Melyssa vo [place], Eryn off-F errar i REIS, et al. Evalu ation , treat ment, and preve ntion of vitam in D defic iency : an Endoc rine Socie ty clini frandy pract ice guide line. JCEM. 2010; 96(7) :1911 -30. Not Available [facility] ([facility]) [address] [facility], [place], [address], 09/03/2023 06:18:35 01/01/20 24 01/02/2024 LIPID PANEL cholesterol, total 155 mg/dL 100-19 9 Not Available [facility] ([facility]) [address] [place], [address], 01/02/2024 10:11:45 01/01/20 24 01/02/2024 LIPID PANEL triglyceride s 47 mg/dL 0-149 Not Available [facility] ([facility]) [address] [place], [address], 01/02/2024 10:11:45 01/01/20 24 01/02/2024 LIPID PANEL HDL cholesterol 82 mg/dL >39 Not Available [facility] ([facility]) [address] [place], [address], 01/02/2024 10:11:45 01/01/20 24 01/02/2024 LIPID PANEL VLDL cholesterol frandy 10 mg/dL 5-40 Not Available [facility] ([facility]) [address] [place], [address], 01/02/2024 10:11:45 01/01/20 24 01/02/2024 LIPID PANEL LDL chol calc ([facility]) 63 mg/dL 0-99 Not Available [facility] ([facility]) [address] [place], [address], 01/02/2024 10:11:45 01/01/20 24 01/02/2024 COMP. METAB OLIC PANEL (14) glucose 113 mg/dL 70-99 above high normal Not Available [facility] ([facility]) [address] [place], [address], 01/02/2024 10:11:46 01/01/20 24 01/02/2024 COMP. METAB OLIC PANEL (14) BUN 14 mg/dL 8-27 Not Available [facility] ([facility]) [address] [place], [address], 01/02/2024 10:11:46 01/01/20 24 01/02/2024 COMP. METAB OLIC PANEL (14) creatinine 1.13 mg/dL 0.76-1 .27 Not Available [facility] ([facility]) [address] [place], [address], 01/02/2024 10:11:46 01/01/20 24 01/02/2024 COMP. METAB OLIC PANEL (14) eGFR 72 mL/mi n/1.7 3 >59 Not Available [facility] ([facility]) [address] [place], [address], 01/02/2024 10:11:46 01/01/20 24 01/02/2024 COMP. METAB OLIC PANEL (14) BUN/creatini ne ratio 12 10-24 Not Available [facility] ([facility]) [address] [place], [address], 01/02/2024 10:11:46 01/01/20 24 01/02/2024 COMP. METAB OLIC PANEL (14) sodium 142 mmol/ L 134-14 4 Not Available [facility] ([facility]) [address] [place], [address], 01/02/2024 10:11:46 01/01/20 24 01/02/2024 COMP. METAB OLIC PANEL (14) potassium 4.5 mmol/ L 3.5-5. 2 Not Available [facility] ([facility]) [address] [place], [address], 01/02/2024 10:11:46 01/01/20 24 01/02/2024 COMP. METAB OLIC PANEL (14) chloride 102 mmol/ L 96-106 Not Available [facility] ([facility]) [address] [place], [address], 01/02/2024 10:11:46 01/01/20 24 01/02/2024 COMP. METAB OLIC PANEL (14) carbon dioxide, total 26 mmol/ L Not Available [facility] ([facility]) [address] [place], [address], 01/02/2024 10:11:46 01/01/20 24 01/02/2024 COMP. METAB OLIC PANEL (14) calcium 9.3 mg/dL 8.6-10 .2 Not Available [facility] ([facility]) [address] [place], [address], 01/02/2024 10:11:46 01/01/20 24 01/02/2024 COMP. METAB OLIC PANEL (14) protein, total 6.6 g/dL 6.0-8. 5 Not Available [facility] ([facility]) [address] [place], [address], 01/02/2024 10:11:46 01/01/20 24 01/02/2024 COMP. METAB OLIC PANEL (14) albumin 4.5 g/dL 3.9-4. 9 Not Available [facility] ([facility]) [address] [place], [address], 01/02/2024 10:11:46 01/01/20 24 01/02/2024 COMP. METAB OLIC PANEL (14) globulin, total 2.1 g/dL 1.5-4. 5 Not Available [facility] ([facility]) [address] [facility], [place], [address], 01/02/2024 10:11:46 01/01/20 24 01/02/2024 COMP. METAB OLIC PANEL (14) bilirubin, total 0.3 mg/dL 0.0-1. 2 Not Available [facility] ([facility]) [address] [facility] [place], [address], 01/02/2024 10:11:46 01/01/20 24 01/02/2024 COMP. METAB OLIC PANEL (14) alkaline phosphatase 41 IU/L 44-121 below low normal Not Available [facility] ([facility]) [address] [facility], [place], [address], 01/02/2024 10:11:46 01/01/20 24 01/02/2024 COMP. METAB OLIC PANEL (14) AST (SGOT) 44 IU/L 0-40 above high normal Not Available [facility] ([facility]) [address] [facility], [place], [address], 01/02/2024 10:11:46 01/01/20 24 01/02/2024 COMP. METAB OLIC PANEL (14) ALT (SGPT) 40 IU/L 0-44 Not Available [facility] ([facility]) [address] [place], [address], 01/02/2024 10:11:46 01/01/20 24 01/02/2024 CBC WITH DIFFE RENTI AL/PL ATELE T WBC 4.8 x10e3 /uL 3.4-10 .8 Simba ified by repea t lissa sis Not Available [facility] ([facility]) [address] [place], [address], 01/02/2024 10:11:46 01/01/20 24 01/02/2024 CBC WITH DIFFE RENTI AL/PL ATELE T RBC 4.15 x10e6 /uL 4.14-5 .80 Not Available [facility] ([facility]) [address] [place], [address], 01/02/2024 10:11:46 01/01/20 24 01/02/2024 CBC WITH DIFFE RENTI AL/PL ATELE T hemoglobin 14.0 g/dL 13.0-1 7.7 Not Available [facility] ([facility]) [address] [place], [address], 01/02/2024 10:11:46 01/01/20 24 01/02/2024 CBC WITH DIFFE RENTI AL/PL ATELE T hematocrit 40.4 % 37.5-5 1.0 Not Available [facility] ([facility]) [address] [place], [address], 01/02/2024 10:11:46 01/01/20 24 01/02/2024 CBC WITH DIFFE RENTI AL/PL ATELE T MCV 97 fL 79-97 Not Available [facility] ([facility]) [address] [place], [address], 01/02/2024 10:11:46 01/01/20 24 01/02/2024 CBC WITH DIFFE RENTI AL/PL ATELE T MCH 33.7 pg 26.6-3 3.0 above high normal Not Available [facility] ([facility]) [address] [place], [address], 01/02/2024 10:11:46 01/01/20 24 01/02/2024 CBC WITH DIFFE RENTI AL/PL ATELE T MCHC 34.7 g/dL 31.5-3 5.7 Not Available [facility] ([facility]) [address] [place], [address], 01/02/2024 10:11:46 01/01/20 24 01/02/2024 CBC WITH DIFFE RENTI AL/PL ATELE T RDW 12.6 % 11.6-1 5.4 Not Available [facility] ([facility]) [address] [facility], [place], [address], 01/02/2024 10:11:46 01/01/20 24 01/02/2024 CBC WITH DIFFE RENTI AL/PL ATELE T platelets 122 x10e3 /uL 150-45 0 below low normal Not Available [facility] ([facility]) [address] [facility], [place], [address], 01/02/2024 10:11:46 01/01/20 24 01/02/2024 CBC WITH DIFFE RENTI AL/PL ATELE T neutrophils 56 % notest ab. Not Available [facility] ([facility]) [address] [facility], [place], [address], 01/02/2024 10:11:46 01/01/20 24 01/02/2024 CBC WITH DIFFE RENTI AL/PL ATELE T lymphs 32 % notest ab. Not Available [facility] ([facility]) [address] [facility], [place], [address], 01/02/2024 10:11:46 01/01/20 24 01/02/2024 CBC WITH DIFFE RENTI AL/PL ATELE T monocytes 10 % notest ab. Not Available [facility] ([facility]) [address] [facility], [place], [address], 01/02/2024 10:11:46 01/01/20 24 01/02/2024 CBC WITH DIFFE RENTI AL/PL ATELE T eos 1 % notest ab. Not Available [facility] ([facility]) [address] [facility], [place], [address], 01/02/2024 10:11:46 01/01/20 24 01/02/2024 CBC WITH DIFFE RENTI AL/PL ATELE T basos 1 % notest ab. Not Available [facility] ([facility]) [address] [facility], [place], [address], 01/02/2024 10:11:46 01/01/20 24 01/02/2024 CBC WITH DIFFE RENTI AL/PL ATELE T neutrophils (absolute) 2.6 x10e3 /uL 1.4-7. 0 Not Available [facility] ([facility]) [address] [facility], [place], [address], 01/02/2024 10:11:46 01/01/20 24 01/02/2024 CBC WITH DIFFE RENTI AL/PL ATELE T lymphs (absolute) 1.5 x10e3 /uL 0.7-3. 1 Not Available [facility] ([facility]) [address] [place], [address], 01/02/2024 10:11:46 01/01/20 24 01/02/2024 CBC WITH DIFFE RENTI AL/PL ATELE T monocytes(ab solute) 0.5 x10e3 /uL 0.1-0. 9 Not Available [facility] ([facility]) [address] [place], [address], 01/02/2024 10:11:46 01/01/20 24 01/02/2024 CBC WITH DIFFE RENTI AL/PL ATELE T eos (absolute) 0.1 x10e3 /uL 0.0-0. 4 Not Available [facility] ([facility]) [address] [place], [address], 01/02/2024 10:11:46 01/01/20 24 01/02/2024 CBC WITH DIFFE RENTI AL/PL ATELE T baso (absolute) 0.0 x10e3 /uL 0.0-0. 2 Not Available [facility] ([facility]) [address] [place], [address], 01/02/2024 10:11:46 01/01/20 24 01/02/2024 CBC WITH DIFFE RENTI AL/PL ATELE T immature granulocytes 0 % notest ab. Not Available [facility] ([facility]) [address] [facility], [place], [address], 01/02/2024 10:11:46 01/01/20 24 01/02/2024 CBC WITH DIFFE RENTI AL/PL ATELE T immature grans (abs) 0.0 x10e3 /uL 0.0-0. 1 Not Available [facility] ([facility]) [address] [facility], [place], [address], 01/02/2024 10:11:46 01/01/20 24 01/02/2024 PROST ATE-S [...] t be inter prete d as absol [place] evide nce of the prese nce or absen ce of serge smart se. Not Available [facility] ([facility]) [address] [facility], [place], [address], 01/02/2024 10:11:47 02/11/20 24 03/13/2024 Fungu s ident ified in Speci men by Cultu re specimen source identified EAR,LE FT SPEC DESCR IPTIO N EAR,L EFT 02/10 4:48 PM CDT [facility] Not Available Not Available 09/02/2024 14:45:23 02/11/20 24 03/13/2024 Fungu s ident ified in Speci men by Cultu re service comment NO SPECIA L REQUES T SPECI AL REQUE STS NO SPECI AL REQUE ST 02/10 4:48 PM CDT [facility] Not Available Not Available 09/02/2024 14:45:23 02/11/20 24 03/13/2024 Fungu s ident ified in Speci men by Cultu re stain result: NO YEAST OR FUNGAL ELEMEN TS SEEN STAIN RESUL T: NO YEAST OR FUNGA L ELEME NTS SEEN 02/10 7:43 PM CDT [facility] Not Available Not Available 09/02/2024 14:45:23 02/11/20 24 03/13/2024 Fungu s ident ified in Speci men by Cultu re bacteria identified in specimen by culture NO FUNGUS ISOLAT ED AT 4 WEEKS. CULTU RE RESUL T NO FUNGU S ISOLA PRAVEENA AT 4 WEEKS . 03/13 11:59 AM CDT [facility] Not Available Not Available 09/02/2024 14:45:23 02/11/20 24 02/14/2024 Bacte kayleigh ident ified in Speci men by Anaer obe cultu re specimen source identified EAR,LE FT SPEC DESCR IPTIO N EAR,L EFT 02/10 4:48 PM CDT [facility] Not Available Not Available 09/02/2024 14:45:23 02/11/20 24 02/14/2024 Bacte kayleigh ident ified in Speci men by Anaer obe cultu re service comment NO SPECIA L REQUES T SPECI AL REQUE STS NO SPECI AL REQUE ST 02/10 4:48 PM CDT [facility] Not Available
--- OUTSIDE RECORDS SUMMARY | 2024-11-17 13:01 | XMS_ITS | Clinical Summary ---
Author Organization [facility] Address [address] [place] [id number] Care Team Providers Care Diagnostic Cardiac Sonographer Name Role Phone Unavailable Primary Care Provider [...] Td Vaccines ( 1 - Tdap) 1977 Pneumococcal Vaccine: 50+ Ye ars (1 of 1 - PCV) 2008 Zoster Vaccines (1 of 2) 2008 Annual Medicare Wellness Visit 09/08/2023 COVID-19 Vaccine (1 - 2023-2 5 season) 2024 RSV Immunization [...]
== END 2024-11-17 12:53 | disposition home or self-care (01) ==
PROVIDERS: PCP Internal Medicine
DX: Z86.69 Personal history of other diseases of the nervous system and sense organs (principal)
CPT/HCPCS: 70480

== ENCOUNTER 2024-12-27 14:51 | Outpatient (CLI) | payer MEDICARE, SELFPAY ==
[2024-12-27 15:20] LABS: Basophils Percent Auto 0.4 % (0.2-1.2); Eosinophils Absolute Auto 0.1 K/mm3 (0-0.3); Eosinophils Percent Auto 0.9 % (0-4.4); Hematocrit 39.5 % (42.0-52.0); Hemoglobin 13.8 g/dL (14.0-18.0); Immature Granulocyte Absolute 0.03 K/mm3 (0.00-0.031); Immature Granulocyte Percent A 0.5 % (0-0.5); Lymphocytes Absolute Auto 1.55 K/mm3 (0.9-3.2); Lymphocytes Percent Auto 28.2 % (18.3-44.2); Mean Corpuscular HGB Conc 34.9 g/dl (32-36); Mean Corpuscular Hemoglobin 33.4 pg (26-34); Mean Corpuscular Volume 95.6 fl (80-100); Mean Platelet Volume 10.1 fl (7.4-10.4); Monocytes Absolute Auto 0.6 K/mm3 (0.1-0.6); Monocytes Percent Auto 10.4 % (2.6-8.5); Neutrophils Absolute Auto 3.3 K/mm3 (1.3-6.7); Neutrophils Percent Auto 59.6 % (45.5-73.1); Platelet Count Result 145 k/mm3 (150-375); Red Blood Count 4.13 M/mm3 (4.6-6.20); Red Cell Distribution Width 12.7 % (11.5-14.5); White Blood Count 5.5 K/mm3 (4.5-10.0)
[2024-12-27 15:33] LABS: Alanine Aminotransferase 29 U/L (6-50); Albumin Level 4.5 g/dL (3.5-5.1); Alkaline Phosphatase 51 U/L (38-126); Anion Gap 9 mmol/L (4-12); Aspartate Amino Transferase 42 U/L (17-59); Bilirubin,Total 0.5 mg/dL (0.2-1.3); Blood Urea Nitrogen 11 mg/dL (9-20); Calcium 9.7 mg/dL (8.4-10.2); Carbon Dioxide 28 mmol/L (22-30); Chloride 101 mmol/L (98-107); Estimated Glomerular Filt Rate > 60; Glucose 112 mg/dL (65-110); Phenytoin Dilantin 12 ug/mL (10-20); Potassium 4.1 mmol/L (3.4-5.0); Sodium 138 mmol/L (137-145); Total Protein 7.6 g/dL (6.3-8.2)
[2024-12-30 15:27] LABS: Vitamin D 1,25 (OH)2 Total 43 pg/mL (18-72); Vitamin D2 1,25 (OH)2 <8 pg/mL; Vitamin D3 1,25 (OH)2 43 pg/mL
== END 2024-12-27 14:52 | disposition home or self-care (01) ==
LOC: ANHLAB 14:53
PROVIDERS: PCP Internal Medicine; Visit Provider Psychiatry & Neurology Neurology
DX: E55.9 Vitamin D deficiency, unspecified (principal); G40.909 Epilepsy, unspecified, not intractable, without status epilepticus
CPT/HCPCS: 36415; 80053; 80185; 82652; 85025